=== PATIENT | female | born 1990 | race Caucasian/White ===

== ENCOUNTER 2016-05-01 02:01 | Emergency (ER) | payer OTHER ==
[2016-05-01 02:17] VITALS: BP 109/73; PULSE 89; RESP 18; TEMP 98
[2016-05-01] MEDS ORDERED: MORPHINE SULFATE 4 MG/ML SYRINGE IV STA (02:27)
[2016-05-01] MEDS ORDERED: ONDANSETRON 4 MG/2 ML VIAL IVP STA (02:27)
--- NOTE | 2016-05-01 03:15 | ED ---
Abdominal Pain HPI - General Source: patient, RN notes reviewed Mode of arrival: wheelchair Limitations: no limitations <Chaka Ybarra - Last Filed: 05/01/16 03:13> <Jacob Schwartz - Last Filed: 05/01/16 05:11> - General Chief Complaint: Abdominal Pain Stated Complaint: Female Time Seen by Provider: 05/01/16 02:24 - History of Present Illness Initial Comments: 26-year-old female presents emergency Department chief complaint severe left lower quadrant abdominal pain. Patient states she's been having on and off pain ever since she had her tubal ligation though she states the pain tonight is so severe she she cannot tolerate it. Patient states it's. Alone the left side. Patient states she had tubal ligation by Dr. Tamayo one year ago. She states that she did follow-up and was told this would dissipate though it's not. Patient denies any nausea vomiting diarrhea constipation. Denies fevers or chills. Denies any dysuria or any hematuria. Patient states that normally she can landed sided makes the pain go away though it's not helping. (Chaka Ybarra) - Related Data Home Medications Medication Instructions Recorded Confirmed Cyanocobalamin [Vitamin B-12] 500 mcg PO DAILY 05/01/16 02 Allergies Allergy/AdvReac Type Severity Reaction Status Date / Time Penicillins Allergy Severe Anaphylaxis Verified 05/01/16 02:17 bacitracin Allergy Swelling Verified 05/01/16 02:17 [From Neosporin ([id number])] bacitracin zinc Allergy Unknown Verified 05/01/16 02:17 [From Neosporin ([id number])] diphenhydramine HCl Allergy Swelling Verified 05/01/16 02:17 [From Benadryl] Iodine and Iodide Containing Allergy Rash/Hives Verified 05/01/16 02:17 Produc lidocaine Allergy Anaphylaxis Verified 05/01/16 02:17 neomycin sulfate Allergy Unknown Verified 05/01/16 02:17 [From Neosporin ([id number])] polymyxin B Allergy Unknown Verified 05/01/16 02:17 [From Neosporin ([id number])] Latex, Natural Rubber AdvReac Rash/Hives Verified 05/01/16 02:17 Review of Systems ROS Other: All systems not noted in ROS Statement are negative. <Chaka Ybarra Lizett - Last Filed: 05/01/16 03:13> ROS Other: All systems not noted in ROS Statement are negative. <Jacob Schwartz - Last Filed: 05/01/16 05:11> ROS Statement: Those systems with pertinent positive or pertinent negative responses have been documented in the HPI. Past Medical History Past Medical History: Asthma Additional Past Medical History / Comment(s): tachycardia History of Any Multi-Drug Resistant Organisms: ESBL, MRSA Date of last positivie culture/infection: 11/02/14 ESBL-E.coli; 12/29/09 MRSA MDRO Source:: Urine-ESBL; MRSA-Unknown Past Surgical History: Orthopedic Surgery, Tubal Ligation Additional Past Surgical History / Comment(s): d&c, shoulder and face surgery Additional Past Anesthesia/Blood Transfusion Reaction / Comment(s): Allergy to lidocain Past Psychological History: No Psychological Hx Reported Smoking Status: Current every day smoker Past Alcohol Use History: None Reported Past Drug Use History: None Reported - Past Family History Father Family Medical History: Hypertension Mother Family Medical History: Hypertension <Chaka Ybarra Lizett - Last Filed: 05/01/16 03:13> General Exam Limitations: no limitations General appearance: alert, in no apparent distress Head exam: Present: atraumatic, normocephalic, normal inspection Respiratory exam: Present: normal lung sounds bilaterally. Absent: respiratory distress, wheezes, rales, rhonchi, stridor Cardiovascular Exam: Present: regular rate, normal rhythm, normal heart sounds. Absent: systolic murmur, diastolic murmur, rubs, gallop, clicks GI/Abdominal exam: Present: soft, tenderness (Moderate to severe tenderness left lower quadrant), normal bowel sounds. Absent: distended, guarding, rebound , rigid Back exam: Absent: CVA tenderness (R), CVA tenderness (L) Neurological exam: Present: alert, oriented X3, CN II-XII intact Skin exam: Present: warm, dry, intact, normal color. Absent: rash <TateChaka Phoenix - Last Filed: 05/01/16 03:13> Medical Decision Making - Lab Data Result diagrams: 05/01/16 03:05 05/01/16 03:05 <Jacob Schwartz - Last Filed: 05/01/16 05:11> - Lab Data Lab Results 05/01/16 05/01/16 05/01/16 Range/Units 03:05 03:05 03:05 WBC 4.8 (3.8-10.6) k/uL RBC 4.30 (3.80-5.40) m/uL Hgb 12.0 (11.4-16.0) gm/dL Hct 36.6 (34.0-46.0) % MCV 85.1 (80.0-100.0) fL MCH 27.9 (25.0-35.0) pg MCHC 32.8 (31.0-37.0) g/dL RDW 13.8 (11.5-15.5) % Plt Count 146 L (150-450) k/uL Neutrophils % 59 % Lymphocytes % 30 % Monocytes % 7 % Eosinophils % 1 % Basophils % 1 % Neutrophils # 2.8 (1.3-7.7) k/uL Lymphocytes # 1.4 (1.0-4.8) k/uL Monocytes # 0.4 (0-1.0) k/uL Eosinophils # 0.1 (0-0.7) k/uL Basophils # 0.0 (0-0.2) k/uL Sodium 141 (137-145) mmol/L Potassium 3.8 (3.5-5.1) mmol/L Chloride 107 (98-107) mmol/L Carbon Dioxide 24 (22-30) mmol/L Anion Gap 10 mmol/L BUN 8 (7-17) mg/dL Creatinine 0.80 (0.52-1.04) mg/dL Est GFR (MDRD) Af Amer >60 (>60 ml/min/1.73 sqM) Est GFR (MDRD) Non-Af >60 (>60 ml/min/1.73 sqM) Glucose 97 (74-99) mg/dL Calcium 9.0 (8.4-10.2) mg/dL Total Bilirubin 0.3 (0.2-1.3) mg/dL AST 15 (14-36) U/L ALT 22 (9-52) U/L Alkaline Phosphatase 39 (38-126) U/L Total Protein 6.3 (6.3-8.2) g/dL Albumin 3.9 (3.5-5.0) g/dL Amylase 47 (30-110) U/L Lipase 143 (23-300) U/L Urine Color Light Yellow Urine Appearance Clear (Clear) Urine pH 7.0 (5.0-8.0) Ur Specific [place] 1.007 (1.001-1.035) Urine Protein Negative (Negative) Urine Glucose (UA) Negative (Negative) Urine Ketones Negative (Negative) Urine Blood Negative (Negative) Urine Nitrate Negative (Negative) Urine Bilirubin Negative (Negative) Urine Urobilinogen <2.0 (<2.0) mg/dL Ur Leukocyte Esterase Negative (Negative) Disposition <Chaka Ybarra - Last Filed: 05/01/16 03:13> <Jacob Schwartz - Last Filed: 05/01/16 05:11> Clinical Impression: Abdominal pain Disposition: HOME SELF-CARE Condition: Fair Instructions: Abdominal Pain (ED) Referrals: Horacio Peñaloza MD [Primary Care Provider] - 1-2 days Brad Jj DO [Doctor of Osteopathic Medicine] - 1-2 days
[2016-05-01 03:20] LABS: Basophils % (A) 1 %; CH 28.1; CHCM 33.1; Eosinophils # (A) 0.1 k/uL (0-0.7); Eosinophils % (A) 1 %; HCT 36.6 % (34.0-46.0); HDW 2.58; Luc # (Auto) 0.09; Luc % (Auto) 2; Lymphocytes # (A) 1.4 k/uL (1.0-4.8); Lymphocytes % (A) 30 %; MCH 27.9 pg (25.0-35.0); MCHC 32.8 g/dL (31.0-37.0); MCV 85.1 fL (80.0-100.0); Mean Platelet Volume 7.8; Monocytes # (A) 0.4 k/uL (0-1.0); Monocytes % (A) 7 %; Neutrophils # (A) 2.8 k/uL (1.3-7.7); Neutrophils % (A) 59 %; RDW 13.8 % (11.5-15.5); WBC 4.8 k/uL (3.8-10.6); WBC (Perox) 4.88
[2016-05-01 03:31] LABS: ALT 22 U/L (9-52); AST 15 U/L (14-36); Alkaline Phosphatase 39 U/L (38-126); Amylase 47 U/L (30-110); Anion Gap 10 mmol/L; Blood Urea Nitrogen 8 mg/dL (7-17); Carbon Dioxide 24 mmol/L (22-30); Chloride 107 mmol/L (98-107); Glucose 97 mg/dL (74-99); Non-African American GFR(MDRD) >60 (>60 ml/min/1.73 sqM); Potassium 3.8 mmol/L (3.5-5.1); Sodium 141 mmol/L (137-145); Total Bilirubin 0.3 mg/dL (0.2-1.3); Total Protein 6.3 g/dL (6.3-8.2)
[2016-05-01] MEDS ORDERED: KETOROLAC 30 MG/ML 1 ML VIAL IVP STA (04:11)
--- NOTE | 2016-05-01 04:38 | US ---
EXAM: US Pelvis Complete, Transabdominal. US Pelvis, Transvaginal. CLINICAL HISTORY: Reason: Pain TECHNIQUE: Real-time transabdominal and transvaginal pelvic ultrasound (complete) with image documentation. Transvaginal imaging was used for better evaluation of the endometrium and adnexa. COMPARISON: No relevant prior studies available. FINDINGS: Limitations: Some limitation reportedly due to the patient's pain, and also from peristalsing bowel loops within the pelvis. Endometrium: Uterus measures 8.9 x 5.1 x 4.7 cm and is uniform. The endometrial stripe is likewise uniform in within physiologic normal limits measuring 1.0 cm. Uterus/cervix: See above. Right ovary: As seen on transabdominal imaging the right ovary measures 3.4 x 2.6 x 2.4 cm, and contains a 1.3 cm hypoechoic focus suggesting a cyst or dominant follicle within. Preserved blood flow. Left ovary: As only visualized on transabdominal imaging the left ovary was measured at 3.0 x 1.9 x 1.6 cm. Preserved blood flow. Free fluid: Small to moderate amount of free fluid in the cul-de-sac. IMPRESSION: 1. Small 1.3 cm presumed cyst or dominant follicle within the right ovary, within physiologic normal limits. 2. Small to moderate amount of free fluid in the cul-de-sac is slightly greater than typically seen on a physiologic basis, albeit is nonspecific.
[2016-05-01 04:54] LABS: Appearance,Urine Clear (Clear); Bilirubin,Urine Negative (Negative); Glucose,Urine (UA) Negative (Negative); Ketones,Urine Negative (Negative); Leukocyte Esterase,Urine Negative (Negative); Nitrite,Urine Negative (Negative); Protein,Urine Negative (Negative); Specific Gravity,Urine 1.007 (1.001-1.035); UA Billing (MACRO vs. MICRO) CHEM; Urobilinogen,Urine <2.0 mg/dL (<2.0)
== END 2016-05-01 05:23 | disposition home or self-care (01) ==
LOC: EC 02:01
DX: R10.32 Left lower quadrant pain (principal); F17.200 Nicotine dependence, unspecified, uncomplicated; Z88.0 Allergy status to penicillin; Z88.8 Allergy status to other drugs, medicaments and biological substances; Z91.040 Latex allergy status; Z79.899 Other long term (current) drug therapy
CPT/HCPCS: 36415; 80053; 82150; 83690; 85025; 81003; 93975; 76856; 76830; 99284; 96374; 96375 ×2; J2270; J2405; J1885

== ENCOUNTER → 2016-10-18 | Outpatient (CLI) | payer OTHER | END | disposition home or self-care (01) | LOC: LABWHC1 10:52 | PROVIDERS: ATTEND Obstetrics & Gynecology | DX: N92.6 Irregular menstruation, unspecified (principal) | CPT/HCPCS: 36415; 84702 ==

== ENCOUNTER 2016-11-24 11:44 | Emergency (ER) | payer OTHER ==
[2016-11-24 11:58] VITALS: BP 107/70; PULSE 86; RESP 20; TEMP 98.1
[2016-11-24] MEDS ORDERED: ACETAMINOPHEN TAB 500 MG TAB PO STA (12:01)
--- NOTE | 2016-11-24 12:06 | ED ---
Lower Extremity Injury HPI - General Chief Complaint: Extremity Injury, Lower Stated Complaint: RT BIG TOE INJURY, POSS Fx Time Seen by Provider: 11/24/16 11:58 Source: patient Mode of arrival: ambulatory Limitations: no limitations - History of Present Illness Initial Comments: 26-year-old female patient presents to emergency department today for evaluation of right great toe injury. Patient states just prior to arrival she was moving around some furniture, states that she went to removal Viviana from a table when the table fell over and struck her in the toe. Patient states that the toe is very painful and the pain increases significantly with any movement. Patient states the toe is somewhat tingly however she is still able to feel when she touches the toe. She currently rates the pain as 7 out of 10 on the pain scale. She denies any previous injury to the foot or toe. She denies any foot pain or ankle pain. She denies falling down after the injury. She denies any other injuries or physical concerns. Patient denies any headache, neck pain , back pain, chest pain, shortness of breath, dizziness, weakness, abdominal pain, nausea, vomiting, or difficulties with bowel movements or urination. - Related Data Home Medications Medication Instructions Recorded Confirmed Cyanocobalamin [Vitamin B-12] 500 mcg PO DAILY 05/01/16 11/24/16 Allergies Allergy/AdvReac Type Severity Reaction Status Date / Time Penicillins Allergy Severe Anaphylaxis Verified 11/24/16 11:57 bacitracin Allergy Swelling Verified 11/24/16 11:57 [From Neosporin ([id number])] bacitracin zinc Allergy Unknown Verified 11/24/16 11:57 [From Neosporin ([id number]-bhr-khrjw)] diphenhydramine HCl Allergy Swelling Verified 11/24/16 11:57 [From Benadryl] Iodine and Iodide Containing Allergy Rash/Hives Verified 11/24/16 11:57 Produc lidocaine Allergy Anaphylaxis Verified 11/24/16 11:57 neomycin sulfate Allergy Unknown Verified 11/24/16 11:57 [From Neosporin ([id number]-zzo-[id number])] polymyxin B Allergy Unknown Verified 11/24/16 11:57 [From Neosporin ([id number]-paz-[id number])] Latex, Natural Rubber AdvReac Rash/Hives Verified 11/24/16 11:57 Review of Systems ROS Statement: Those systems with pertinent positive or pertinent negative responses have been documented in the HPI. ROS Other: All systems not noted in ROS Statement are negative. Past Medical History Past Medical History: Asthma Additional Past Medical History / Comment(s): tachycardia History of Any Multi-Drug Resistant Organisms: ESBL, MRSA Date of last positivie culture/infection: 11/02/14 ESBL-E.coli; 12/29/09 MRSA MDRO Source:: Urine-ESBL; MRSA-Unknown Past Surgical History: Orthopedic Surgery, Tubal Ligation Additional Past Surgical History / Comment(s): d&c, shoulder and face surgery Additional Past Anesthesia/Blood Transfusion Reaction / Comment(s): Allergy to lidocain Past Psychological History: No Psychological Hx Reported Smoking Status: Current every day smoker Past Alcohol Use History: None Reported Past Drug Use History: None Reported - Past Family History Father Family Medical History: Hypertension Mother Family Medical History: Hypertension General Exam Limitations: no limitations General appearance: alert, in no apparent distress, other (Patient is well- developed, well-nourished, and in no acute distress. Vital signs upon presentation her temperature 98.1, pulse 86, respirations 20, blood pressure 107 /70, pulse ox 100% on room air.) Respiratory exam: Present: normal lung sounds bilaterally. Absent: respiratory distress, wheezes, rales, rhonchi, stridor Cardiovascular Exam: Present: regular rate, normal rhythm, normal heart sounds. Absent: systolic murmur, diastolic murmur, rubs, gallop, clicks Extremities exam: Present: normal inspection, tenderness (Tenderness over the anterior right great toe. No tenderness over the MTP joint.), normal capillary refill, other (Skin is pink, warm, and dry. No evidence of swelling or ecchymosis. Cap refill is less than 3 seconds.). Absent: full ROM (Decreased range of motion to the right great toe due to severe pain with movement.), pedal edema, joint swelling, calf tenderness Neurological exam: Present: alert, oriented X3, CN II-XII intact Psychiatric exam: Present: normal affect, normal mood Skin exam: Present: warm, dry, intact, normal color. Absent: rash Course Vital Signs 11/24/16 11:56 Temperature 98.1 F Pulse Rate 86 Respiratory 20 Rate Blood Pressure 107/70 O2 Sat by Pulse 100 Oximetry Medical Decision Making - Medical Decision Making 26-year-old female patient presented for evaluation of right great toe injury. X-ray was negative for any acute fracture osseous abnormalities. Did discuss with patient the possibility of an occult fracture. She was instructed to have repeat x-ray performed in 7-10 days if she has continued pain symptoms. She is instructed as [id number] Tylenol or Motrin for pain control. She is instructed to rest, ice, and elevate the extremity today. She is instructed to return here immediately for any new, worsening, or concerning symptoms. Patient verbalizes understanding and agrees with this plan. - Radiology Data Radiology results: report reviewed, image reviewed 3 views of the right great toe were obtained and showed no fracture noted dislocation or other acute osseous lesion. Impression by Dr. Benitez shows normal right great toe. Disposition Clinical Impression: Toe contusion Disposition: HOME SELF-CARE Condition: Good Instructions: Contusion in Adults (ED) Additional Instructions: Rest foot today. Keep elevated apply ice 20 minutes at a time at least 4 times per day. Have repeat x-ray done in 7-10 days pain symptoms persist. Continue [id number]-[id number] Tylenol or Motrin for pain control. Return here immediately for any new, worsening, or concerning symptoms. Referrals: Horacio Peñaloza MD [Primary Care Provider] - 1-2 days Time of Disposition: 12:24
--- NOTE | 2016-11-24 12:23 | XR ---
EXAMINATION TYPE: XR toes RT , 3 VIEWS DATE OF EXAM ORDERED: 11/24/2016 HISTORY: Pain. COMPARISON: None. FINDINGS: No fracture, dislocation or other acute osseous lesion is seen. IMPRESSION: NORMAL RIGHT GREAT TOE.
== END 2016-11-24 12:45 | disposition home or self-care (01) ==
LOC: EC 11:44
DX: S90.111A Contusion of right great toe without damage to nail, initial encounter (principal); F17.200 Nicotine dependence, unspecified, uncomplicated; Z86.14 Personal history of Methicillin resistant Staphylococcus aureus infection; Z79.899 Other long term (current) drug therapy; Z88.0 Allergy status to penicillin; Z88.1 Allergy status to other antibiotic agents; Z91.048 Other nonmedicinal substance allergy status; Z91.040 Latex allergy status; Z91.041 Radiographic dye allergy status; W20.8XXA Other cause of strike by thrown, projected or falling object, initial encounter; Y93.89 Activity, other specified
CPT/HCPCS: 99283

== ENCOUNTER 2017-06-21 18:08 | Emergency (ER) | payer OTHER ==
[2017-06-21 18:27] VITALS: BP 107/67; PULSE 76; RESP 18; TEMP 99.2
[2017-06-21] MEDS ORDERED: DIPH,PERTUS(ACELL)TETVAC-LF 0.5 ML VIAL IM ONE (18:31)
--- NOTE | 2017-06-21 18:37 | ED ---
Lower Extremity Injury HPI - General Chief Complaint: Extremity Injury, Lower Stated Complaint: left foot pain Time Seen by Provider: 06/21/17 18:22 Source: patient Mode of arrival: wheelchair Limitations: no limitations - History of Present Illness Initial Comments: 27-year-old female presents with left great toe injury after a plastic pellet fell on it at work there issue. Patient states it was bleeding and they wrapped it and cleaned it with alcohol. Patient states her tetanus is up-to- date at 2008. Patient states it's very painful to ambulate. Patient states part of her nail did come off. No foot pain no second digit pain only pain in the first great toe. No fevers. No discharge besides bleeding. MD Complaint: foot injury -: hour(s) (1.5) Improves With: immobilization Worsens With: weight bearing Context: direct blow - Related Data Home Medications Medication Instructions Recorded Confirmed Cyanocobalamin [Vitamin B-12] 500 mcg PO DAILY 05/01/16 11/24/16 Previous Rx's Medication Instructions Recorded Azithromycin [Zithromax] 0 mg PO DIRECTED #6 tab 06/21/17 Allergies Allergy/AdvReac Type Severity Reaction Status Date / Time Penicillins Allergy Severe Anaphylaxis Verified 06/21/17 18:25 bacitracin Allergy Swelling Verified 06/21/17 18:25 [From Neosporin ([id number])] bacitracin zinc Allergy Unknown Verified 06/21/17 18:25 [From Neosporin (ymt-tuv-melkd)] diphenhydramine HCl Allergy Swelling Verified 06/21/17 18:25 [From Benadryl] Iodine and Iodide Containing Allergy Rash/Hives Verified 06/21/17 18:25 Produc lidocaine Allergy Anaphylaxis Verified 06/21/17 18:25 neomycin sulfate Allergy Unknown Verified 06/21/17 18:25 [From Neosporin ([id number])] polymyxin B Allergy Unknown Verified 06/21/17 18:25 [From Neosporin (hql-jzr-[id number])] Latex, Natural Rubber AdvReac Rash/Hives Verified 06/21/17 18:25 Review of Systems ROS Statement: Those systems with pertinent positive or pertinent negative responses have been documented in the HPI. ROS Other: All systems not noted in ROS Statement are negative. Constitutional: Denies: fever, chills Skin: Reports: other (Left great toe laceration and pain) Past Medical History Past Medical History: Asthma Additional Past Medical History / Comment(s): tachycardia History of Any Multi-Drug Resistant Organisms: ESBL, MRSA Date of last positivie culture/infection: 11/02/14 ESBL-E.coli; 12/29/09 MRSA MDRO Source:: Urine-ESBL; MRSA-Unknown Past Surgical History: Orthopedic Surgery, Tubal Ligation Additional Past Surgical History / Comment(s): d&c, shoulder and face surgery Additional Past Anesthesia/Blood Transfusion Reaction / Comment(s): Allergy to lidocain Past Psychological History: No Psychological Hx Reported Smoking Status: Current every day smoker Past Alcohol Use History: Occasional Past Drug Use History: None Reported - Past Family History Father Family Medical History: Hypertension Mother Family Medical History: Hypertension General Exam Limitations: no limitations General appearance: alert, in no apparent distress Neurological exam: Present: alert, oriented X3, CN II-XII intact Psychiatric exam: Present: normal affect, normal mood Skin exam: Present: warm, dry, normal color. Absent: intact (Laceration to the distal tip tip of the nail is removed. Positive bleeding), rash Course Vital Signs 06/21/17 18:25 Temperature 99.2 F Pulse Rate 76 Respiratory 18 Rate Blood Pressure 107/67 O2 Sat by Pulse 100 Oximetry Medical Decision Making - Medical Decision Making Patient was prepped and draped appropriately with normal saline Betadine solution. Wound was cleansed well bacitracin was applied patient states she is not ALLERGIC to bacitracin. Gauze was applied. Patient was given orthopedic shoe for support and was told to rahda tape her first and second toes. Patient' s x-ray report came back first metatarsal posttraumatic trauma versus osteonecrosis. Patient did have trauma to the area and is tender with x-ray is describing. Patient should follow up with orthopedic if not improving. Patient to only use topical antibiotics at this time if symptoms get worse such as redness or pain patient to then start oral antibiotic. Disposition Clinical Impression: Contusion, Laceration Disposition: HOME SELF-CARE Condition: Good Instructions: Foot Contusion (ED), Laceration (ED) Prescriptions: Azithromycin [Zithromax] 0 mg PO DIRECTED #6 tab Referrals: Horacio Peñaloza MD [Primary Care Provider] - 1-2 days Time of Disposition: 19:18
--- NOTE | 2017-06-21 19:00 | XR ---
First digit left foot HISTORY: Trauma and pain 3 views of the first digit of the left foot Bone mineralization is remarkable for sclerotic density with lucency at the level of the distal first metatarsal extending into the metatarsophalangeal joint, there is minimal marginal spurring. No disl ocation. IMPRESSION: Findings may represent osteonecrosis or posttraumatic change, possibly chronic involving the distal first metatarsal.
== END 2017-06-21 19:23 | disposition home or self-care (01) ==
LOC: EC 18:08
DX: S91.112A Laceration without foreign body of left great toe without damage to nail, initial encounter (principal); F17.200 Nicotine dependence, unspecified, uncomplicated; Z79.899 Other long term (current) drug therapy; Z88.0 Allergy status to penicillin; Z88.1 Allergy status to other antibiotic agents; Z88.8 Allergy status to other drugs, medicaments and biological substances; Z91.040 Latex allergy status; Z91.048 Other nonmedicinal substance allergy status; Z86.14 Personal history of Methicillin resistant Staphylococcus aureus infection; Z23 Encounter for immunization; W20.8XXA Other cause of strike by thrown, projected or falling object, initial encounter; Y92.69 Other specified industrial and construction area as the place of occurrence of the external cause
CPT/HCPCS: 90471; 90715; 99283

== ENCOUNTER 2017-07-23 13:50 | Emergency (ER) | payer OTHER ==
[2017-07-23 14:15] VITALS: BP 123/86; PULSE 65; RESP 20; TEMP 98.3
--- NOTE | 2017-07-23 15:10 | ED ---
General Adult HPI - General Chief complaint: Dental/Oral Stated complaint: Abcess in mouth Time Seen by Provider: 07/23/17 14:37 Source: patient, RN notes reviewed Mode of arrival: ambulatory Limitations: no limitations - History of Present Illness Initial comments: 27-year-old female presents to the emergency department for a chief complaint of tooth abscess x 2 days. Patient states she is seeing a dentist in 2 weeks. She states she is supposed to have all her teeth pulled. Patient states she has been taking Motrin and it has not been helping. Patient denies any fevers or chills at home. Patient states it is radiating down her lower jaw. Patient denies any pain or stiffness in the neck. Patient has no other complaints at this time including shortness of breath, chest pain, abdominal pain, nausea or vomiting, headache, or visual changes. - Related Data Home Medications Medication Instructions Recorded Confirmed Cyanocobalamin [Vitamin B-12] 500 mcg PO DAILY 05/01/16 11/24/16 Previous Rx's Medication Instructions Recorded Azithromycin [Zithromax] 0 mg PO DIRECTED #6 tab 06/21/17 Acetaminophen-Codeine 300-30mg 1 tab PO Q6H PRN #10 tablet 07/23/17 [Tylenol #3] Clindamycin [Cleocin] 450 mg PO Q8H 10 Days capsule 07/23/17 Ibuprofen [Motrin] 600 mg PO Q8HR PRN #20 tab 07/23/17 Allergies Allergy/AdvReac Type Severity Reaction Status Date / Time Penicillins Allergy Severe Anaphylaxis Verified 07/23/17 14:15 bacitracin Allergy Swelling Verified 07/23/17 14:15 [From Neosporin ([id number])] bacitracin zinc Allergy Unknown Verified 07/23/17 14:15 [From Neosporin (tok-mhm-oztjm)] diphenhydramine HCl Allergy Swelling Verified 07/23/17 14:15 [From Benadryl] Iodine and Iodide Containing Allergy Rash/Hives Verified 07/23/17 14:15 Produc lidocaine Allergy Anaphylaxis Verified 07/23/17 14:15 neomycin sulfate Allergy Unknown Verified 07/23/17 14:15 [From Neosporin (ssa-nrl-secpu)] polymyxin B Allergy Unknown Verified 07/23/17 14:15 [From Neosporin (jry-kfu-zniti)] Latex, Natural Rubber AdvReac Rash/Hives Verified 07/23/17 14:15 Review of Systems ROS Statement: Those systems with pertinent positive or pertinent negative responses have been documented in the HPI. ROS Other: All systems not noted in ROS Statement are negative. Past Medical History Past Medical History: Asthma Additional Past Medical History / Comment(s): tachycardia History of Any Multi-Drug Resistant Organisms: ESBL, MRSA Date of last positivie culture/infection: 11/02/14 ESBL-E.coli; 12/29/09 MRSA MDRO Source:: Urine-ESBL; MRSA-Unknown Past Surgical History: Orthopedic Surgery, Tubal Ligation Additional Past Surgical History / Comment(s): d&c, shoulder and face surgery Additional Past Anesthesia/Blood Transfusion Reaction / Comment(s): Allergy to lidocain Past Psychological History: No Psychological Hx Reported Smoking Status: Current every day smoker Past Alcohol Use History: Occasional Past Drug Use History: None Reported - Past Family History Father Family Medical History: Hypertension Mother Family Medical History: Hypertension General Exam Limitations: no limitations General appearance: alert, in no apparent distress Head exam: Present: atraumatic, normocephalic, normal inspection ENT exam: Present: mucous membranes moist, TM's normal bilaterally, normal external ear exam, other (Tooth 30 and 31 are fractured. No drainable abscess noted.) Course Vital Signs 07/23/17 14:12 Temperature 98.3 F Pulse Rate 65 Respiratory 20 Rate Blood Pressure 123/86 O2 Sat by Pulse 100 Oximetry Medical Decision Making - Medical Decision Making 27-year-old female presents to the emergency department for a chief complaint of right-sided lower tooth pain 2 days. Patient has an appointment with a dentist in 2 weeks. She is supposed to get all her teeth pulled. Patient states she has been taking Motrin is not helping. Patient has radiating pain in the right lower jaw. No fevers or chills at home. No neck stiffness or tenderness. On exam patient has a fractured tooth 30 and 31. Patient was offered pain medication in the emergency department but needs to drive home. Patient was given a prescription for Motrin. She was given a prescription for Tylenol 3 for breakthrough pain. She is ALLERGIC to penicillin so was given clindamycin. She is to return to the emergency Department if she has any worsening symptoms or fevers. Otherwise she is to follow-up with the dentist at her scheduled appointment. Disposition Clinical Impression: Abscessed tooth Disposition: HOME SELF-CARE Condition: Good Instructions: Dental Abscess (ED) Additional Instructions: Please take Motrin for pain. If pain is still severe take Tylenol 3. Please take antibiotic as directed. Please follow-up with dentist as soon as possible. Return to the emergency department if symptoms worsen or you begin to develop fevers. Prescriptions: Acetaminophen-Codeine 300-30mg [Tylenol #3] 1 tab PO Q6H PRN #10 tablet PRN Reason: Pain Clindamycin [Cleocin] 450 mg PO Q8H 10 Days capsule Ibuprofen [Motrin] 600 mg PO Q8HR PRN #20 tab PRN Reason: Pain Is patient prescribed a controlled substance at d/c from ED?: Yes Referrals: Horacio Peñaloza MD [Primary Care Provider] - 1-2 days Time of Disposition: 15:09
== END 2017-07-23 15:16 | disposition home or self-care (01) ==
LOC: EC 13:50
DX: K04.7 Periapical abscess without sinus (principal); K03.81 Cracked tooth; F17.200 Nicotine dependence, unspecified, uncomplicated; Z79.899 Other long term (current) drug therapy; Z88.0 Allergy status to penicillin; Z88.4 Allergy status to anesthetic agent; Z91.040 Latex allergy status; Z88.8 Allergy status to other drugs, medicaments and biological substances; Z86.14 Personal history of Methicillin resistant Staphylococcus aureus infection
CPT/HCPCS: 99282

== ENCOUNTER 2017-08-02 14:03 | Emergency (ER) | payer OTHER ==
[2017-08-02 14:07] VITALS: RESP 16
[2017-08-02] MEDS ORDERED: SODIUM CHLORIDE 0.9% 1,000 ML IV STA ×2 (14:16)
[2017-08-02] MEDS ORDERED: METOCLOPRAMIDE 5 MG/ML 2 ML VIAL IVP STA (14:17)
[2017-08-02] MEDS ORDERED: DEXAMETHASONE SOD PHOSPHATE 10 MG/ML 1 ML VIAL IV STA (14:18)
[2017-08-02] MEDS ORDERED: KETOROLAC 30 MG/ML 1 ML VIAL IVP STA (14:18)
[2017-08-02] MEDS ORDERED: LORazepam 2 MG/ML INJ IV STA (14:18)
--- NOTE | 2017-08-02 14:21 | ED ---
Syncope HPI - General Chief Complaint: Syncope Stated Complaint: Syncope Time Seen by Provider: 08/02/17 14:08 Source: patient Mode of arrival: ambulatory Limitations: no limitations - History of Present Illness Initial Comments: This 27-year-old white female presents with a syncopal episode. She apparently was cleaning the house and passed out. She apparently has been working significant amount of hours. She states that her air-conditioning was not on in her house and it was very hot. She further relates that she's been very stressed out recently. She recently found out that both of her children have autism as well as seizure disorders. She states that she feels very tired and fatigued. She complains of a headache and significant nausea. Headache is diffuse in nature. She has not been eating or drinking much recently. She denies any possibility of as she's had a tubal ligation. There is no chest pain shortness of breath. No leg pain or swelling. She does have a history of tachycardia and sees Dr. Ramirez for this. No other complaints or modifying factors. - Related Data Home Medications Medication Instructions Recorded Confirmed Cyanocobalamin [Vitamin B-12] 500 mcg PO DAILY 05/01/16 08/02/17 Previous Rx's Medication Instructions Recorded Azithromycin [Zithromax] 0 mg PO DIRECTED #6 tab 06/21/17 Acetaminophen-Codeine 300-30mg 1 tab PO Q6H PRN #10 tablet 07/23/17 [Tylenol #3] Clindamycin [Cleocin] 450 mg PO Q8H 10 Days capsule 07/23/17 Ibuprofen [Motrin] 600 mg PO Q8HR PRN #20 tab 07/23/17 Allergies Allergy/AdvReac Type Severity Reaction Status Date / Time Penicillins Allergy Severe Anaphylaxis Verified 08/02/17 14:07 bacitracin Allergy Swelling Verified 08/02/17 14:07 [From Neosporin ([id number])] bacitracin zinc Allergy Unknown Verified 08/02/17 14:07 [From Neosporin ([id number])] diphenhydramine HCl Allergy Swelling Verified 08/02/17 14:07 [From Benadryl] Iodine and Iodide Containing Allergy Rash/Hives Verified 08/02/17 14:07 Produc lidocaine Allergy Anaphylaxis Verified 08/02/17 14:07 neomycin sulfate Allergy Unknown Verified 08/02/17 14:07 [From Neosporin ([id number])] polymyxin B Allergy Unknown Verified 08/02/17 14:07 [From Neosporin ([id number])] Latex, Natural Rubber AdvReac Rash/Hives Verified 08/02/17 14:07 Review of Systems ROS Statement: Those systems with pertinent positive or pertinent negative responses have been documented in the HPI. ROS Other: All systems not noted in ROS Statement are negative. Past Medical History Past Medical History: Asthma Additional Past Medical History / Comment(s): tachycardia History of Any Multi-Drug Resistant Organisms: ESBL, MRSA Date of last positivie culture/infection: 11/02/14 ESBL-E.coli; 12/29/09 MRSA MDRO Source:: Urine-ESBL; MRSA-Unknown Past Surgical History: Orthopedic Surgery, Tubal Ligation Additional Past Surgical History / Comment(s): d&c, shoulder and face surgery Additional Past Anesthesia/Blood Transfusion Reaction / Comment(s): Allergy to lidocain Past Psychological History: No Psychological Hx Reported Smoking Status: Current every day smoker Past Alcohol Use History: Occasional Past Drug Use History: None Reported - Past Family History Father Family Medical History: Hypertension Mother Family Medical History: Hypertension General Exam - General Exam Comments Initial Comments: GENERAL: The patient is well nourished and well hydrated. VITAL SIGNS: Heart rate, blood pressure, respiratory rate reviewed as recorded in nurse's notes. EYES: Pupils are round and reactive. Extraocular movements are intact. No conjunctival / lid redness or swelling. ENT: No external evidence of injury, swelling, or ecchymosis. Airway is patent. Throat is clear. NECK: Nontender. No swelling or evidence of injury. No subcutaneous emphysema. Trachea is midline. No thyroid mass. HEART: Regular rate and rhythm. Good peripheral pulses. LUNGS/CHEST: Breath sounds clear and equal bilaterally. No rales, rhonchi, or wheezes. No ecchymosis, subcutaneous emphysema, or tenderness. ABDOMEN: Abdomen soft without tenderness. No palpable masses or organomegaly. No peritoneal signs. No abdominal wall swelling or ecchymosis. EXTREMITIES: No extremity tenderness. Normal muscle tone and function. No thoracolumbar tenderness. NEUROLOGIC: Sensation is grossly intact. Cranial nerve exam reveals face is symmetrical, tongue is midline, speech is clear. SKIN: No abrasions or ecchymosis is noted. No induration or masses noted. PSYCHIATRIC: Alert and oriented. Appears very anxious. Limitations: no limitations Course Vital Signs 08/02/17 08/02/17 14:04 14:37 Temperature 97.7 F Pulse Rate 117 H 81 Respiratory 16 16 Rate Blood Pressure 132/81 153/98 O2 Sat by Pulse 100 97 Oximetry Medical Decision Making - Medical Decision Making The patient was seen and examined. All diagnostics are reviewed. An IV is established and she is hydrated. She also receives some Decadron, Toradol, and Reglan intravenously. The EKG came back showing a normal sinus rhythm at a rate of 74. There is no acute ST-T wave changes identified. The RI intervals 156, QRS duration is 90, and the QTC intervals 426. Patient did receive some Ativan intravenously as well. The Accu-Chek came back at 106. The blood work was all essentially within normal limits. The computed tomography scan of the brain does not show any acute process. All of her symptoms have resolved on recheck. She is sleeping and feels much improved. Overall, the exact cause of her symptoms are not definitively determined. Is felt as though she likely does have another migraine headache. She also is very fatigued from increased work and decreased sleep. She has many life stressors and is felt as though she has a degree of anxiety as well nevertheless, it is felt as though she stable for discharge and close follow-up with her doctor. She is counseled that she may benefit from medications in regard to anxiety and may benefit from follow-up with the psychologist as well. - Lab Data Result diagrams: 08/02/17 14:23 08/02/17 14:23 Lab Results 08/02/17 08/02/17 08/02/17 Range/Units 14:16 14:17 14:23 WBC 5.2 (3.8-10.6) k/uL RBC 4.70 (3.80-5.40) m/uL Hgb 12.1 (11.4-16.0) gm/dL Hct 36.2 (34.0-46.0) % MCV 77.0 L (80.0-100.0) fL MCH 25.6 (25.0-35.0) pg MCHC 33.3 (31.0-37.0) g/dL RDW 14.6 (11.5-15.5) % Plt Count 240 (150-450) k/uL Neutrophils % 63 % Lymphocytes % 28 % Monocytes % 6 % Eosinophils % 1 % Basophils % 1 % Neutrophils # 3.3 (1.3-7.7) k/uL Lymphocytes # 1.5 (1.0-4.8) k/uL Monocytes # 0.3 (0-1.0) k/uL Eosinophils # 0.0 (0-0.7) k/uL Basophils # 0.0 (0-0.2) k/uL Sodium (137-145) mmol/L Potassium (3.5-5.1) mmol/L Chloride (98-107) mmol/L Carbon Dioxide (22-30) mmol/L Anion Gap mmol/L BUN (7-17) mg/dL Creatinine (0.52-1.04) mg/dL Est GFR (CKD-EPI)AfAm (>60 ml/min/1.73 sqM) Est GFR (CKD-EPI)NonAf (>60 ml/min/1.73 sqM) Glucose (74-99) mg/dL POC Glucose (mg/dL) 106 H (75-99) mg/dL POC Glu [employer] Kal Galindo Calcium (8.4-10.2) mg/dL Total Bilirubin (0.2-1.3) mg/dL AST (14-36) U/L ALT (9-52) U/L Alkaline Phosphatase (38-126) U/L Total Protein (6.3-8.2) g/dL Albumin (3.5-5.0) g/dL Urine Color Light Yellow Urine Appearance Clear (Clear) Urine pH 8.0 (5.0-8.0) Ur Specific [place] 1.003 (1.001-1.035) Urine Protein Negative (Negative) Urine Glucose (UA) Negative (Negative) Urine Ketones Negative (Negative) Urine Blood Negative (Negative) Urine Nitrite Negative (Negative) Urine Bilirubin Negative (Negative) Urine Urobilinogen <2.0 (<2.0) mg/dL Ur Leukocyte Esterase Negative (Negative) 08/02/17 Range/Units 14:23 WBC (3.8-10.6) k/uL RBC (3.80-5.40) m/uL Hgb (11.4-16.0) gm/dL Hct (34.0-46.0) % MCV (80.0-100.0) fL MCH (25.0-35.0) pg MCHC (31.0-37.0) g/dL RDW (11.5-15.5) % Plt Count (150-450) k/uL Neutrophils % % Lymphocytes % % Monocytes % % Eosinophils % % Basophils % % Neutrophils # (1.3-7.7) k/uL Lymphocytes # (1.0-4.8) k/uL Monocytes # (0-1.0) k/uL Eosinophils # (0-0.7) k/uL Basophils # (0-0.2) k/uL Sodium 140 (137-145) mmol/L Potassium 3.8 (3.5-5.1) mmol/L Chloride 103 (98-107) mmol/L Carbon Dioxide 22 (22-30) mmol/L Anion Gap 15 mmol/L BUN 9 (7-17) mg/dL Creatinine 0.77 (0.52-1.04) mg/dL Est GFR (CKD-EPI)AfAm >90 (>60 ml/min/1.73 sqM) Est GFR (CKD-EPI)NonAf >90 (>60 ml/min/1.73 sqM) Glucose 96 (74-99) mg/dL POC Glucose (mg/dL) (75-99) mg/dL POC Glu [employer] Appliance Installer ID Calcium 10.2 (8.4-10.2) mg/dL Total Bilirubin 0.4 (0.2-1.3) mg/dL AST 17 (14-36) U/L ALT 24 (9-52) U/L Alkaline Phosphatase 50 (38-126) U/L Total Protein 6.9 (6.3-8.2) g/dL Albumin 4.7 (3.5-5.0) g/dL Urine Color Urine Appearance (Clear) Urine pH (5.0-8.0) Ur Specific [place] (1.001-1.035) Urine Protein (Negative) Urine Glucose (UA) (Negative) Urine Ketones (Negative) Urine Blood (Negative) Urine Nitrite (Negative) Urine Bilirubin (Negative) Urine Urobilinogen (<2.0) mg/dL Ur Leukocyte Esterase (Negative) Disposition Clinical Impression: Fatigue, Headache, Syncope, Anxiety, Dehydration, Hypertension Disposition: HOME SELF-CARE Condition: Good Instructions: Syncope (ED), Migraine Headache (ED), Fatigue (ED), Anxiety (ED) , Hypertension (ED) Is patient prescribed a controlled substance at d/c from ED?: No Referrals: None,Stated [REFERRING] - 1-2 days Time of Disposition: 15:30
[2017-08-02 14:29] LABS: Glucose,Whole Blood 106 mg/dL (75-99)
[2017-08-02 14:38] LABS: Basophils % (A) 1 %; Eosinophils % (A) 1 %; HCT 36.2 % (34.0-46.0); HGB 12.1 gm/dL (11.4-16.0); Lymphocytes # (A) 1.5 k/uL (1.0-4.8); Lymphocytes % (A) 28 %; MCH 25.6 pg (25.0-35.0); MCHC 33.3 g/dL (31.0-37.0); Mean Platelet Volume 7.3; Monocytes # (A) 0.3 k/uL (0-1.0); Monocytes % (A) 6 %; Neutrophils # (A) 3.3 k/uL (1.3-7.7); Neutrophils % (A) 63 %; Platelet Count 240 k/uL (150-450); RDW 14.6 % (11.5-15.5); WBC 5.2 k/uL (3.8-10.6)
[2017-08-02 14:47] LABS: ALT 24 U/L (9-52); AST 17 U/L (14-36); Albumin 4.7 g/dL (3.5-5.0); Alkaline Phosphatase 50 U/L (38-126); Anion Gap 15 mmol/L; Blood Urea Nitrogen 9 mg/dL (7-17); Calcium 10.2 mg/dL (8.4-10.2); Carbon Dioxide 22 mmol/L (22-30); Chloride 103 mmol/L (98-107); Glucose 96 mg/dL (74-99); Potassium 3.8 mmol/L (3.5-5.1); Sodium 140 mmol/L (137-145); Total Bilirubin 0.4 mg/dL (0.2-1.3); Total Protein 6.9 g/dL (6.3-8.2)
[2017-08-02 14:52] LABS: Appearance,Urine Clear (Clear); Bilirubin,Urine Negative (Negative); Blood,Urine Negative (Negative); Color,Urine Light Yellow; Glucose,Urine (UA) Negative (Negative); Ketones,Urine Negative (Negative); Leukocyte Esterase,Urine Negative (Negative); Nitrite,Urine Negative (Negative); Protein,Urine Negative (Negative); Specific Gravity,Urine 1.003 (1.001-1.035); Urobilinogen,Urine <2.0 mg/dL (<2.0)
--- NOTE | 2017-08-02 15:15 | CT ---
EXAMINATION TYPE: CT brain wo con DATE OF EXAM: 08/02/2017 COMPARISON: 11/24/2009 HISTORY: Syncope CT DLP: 1121 mGycm. Automated Exposure Control for Dose Reduction was Utilized. TECHNIQUE: CT scan of the head is performed without contrast. FINDINGS: There is no acute intracranial hemorrhage, mass effect, or midline shift identified. No s uspicious extra actual fluid collection. The ventricles and sulci are within normal limits in size. The globes are intact and the visualized sinuses are clear. IMPRESSION: No acute intracranial hemorrhage, mass effect, or midline shift is seen.
[2017-08-02 16:13] VITALS: BP 121/88; PULSE 78; TEMP 97.8
== END 2017-08-02 16:12 | disposition home or self-care (01) ==
LOC: EC 14:03
DX: I10 Essential (primary) hypertension (principal); E86.0 Dehydration; F41.9 Anxiety disorder, unspecified; R55 Syncope and collapse; R51 Headache; F17.200 Nicotine dependence, unspecified, uncomplicated; Z86.14 Personal history of Methicillin resistant Staphylococcus aureus infection; Z88.0 Allergy status to penicillin; Z88.1 Allergy status to other antibiotic agents; Z88.8 Allergy status to other drugs, medicaments and biological substances; Z91.041 Radiographic dye allergy status; Z88.4 Allergy status to anesthetic agent; Z91.040 Latex allergy status
CPT/HCPCS: 36415; 93005; 80053; 85025; 81003; 70450; 99284; 96374; 96375 ×3; 96361 ×2; J2060; J1100; J2765; J1885

== ENCOUNTER 2017-08-22 09:51 | Emergency (ER) | payer OTHER ==
[2017-08-22 10:19] VITALS: BP 114/79; PULSE 75; RESP 16; TEMP 98.2
--- NOTE | 2017-08-22 10:47 | ED ---
General Adult HPI - General Chief complaint: Skin/Abscess/Foreign Body Stated complaint: ABSCESS Time Seen by Provider: 08/22/17 10:23 Source: patient, RN notes reviewed Mode of arrival: ambulatory Limitations: no limitations - History of Present Illness Initial comments: Patient is a pleasant 27-year-old female presenting to the emergency department with concerns for dental abscess. Patient does have history of similar symptoms previously. Patient has been on antibiotics twice recently. Patient was on azithromycin as well as clindamycin. Patient states no improvement. Patient last saw her dentist 2 weeks ago however dentist would not pull the tooth secondary to concerns for infection. No fevers. Patient has been taking Motrin and Tylenol 3 without much improvement. - Related Data Home Medications Medication Instructions Recorded Confirmed Cyanocobalamin [Vitamin B-12] 500 mcg PO DAILY 05/01/16 08/22/17 Calcium Carbonate [Calcium] 600 mg PO DAILY 08/22/17 08/22/17 Cholecalciferol [Vitamin D3] 1,000 unit PO DAILY 08/22/17 08/22/17 Ferrous Sulfate [Feosol] 325 mg PO DAILY 08/22/17 08/22/17 Ibuprofen [Motrin Ib] 800 mg PO Q6H PRN 08/22/17 08/22/17 Previous Rx's Medication Instructions Recorded Acetaminophen-Codeine 300-30mg 1 tab PO Q6H PRN #10 tablet 07/23/17 [Tylenol #3] metroNIDAZOLE [Flagyl] 500 mg PO QID #40 tab 08/22/17 Allergies Allergy/AdvReac Type Severity Reaction Status Date / Time Penicillins Allergy Severe Anaphylaxis Verified 08/22/17 10:37 bacitracin Allergy Swelling Verified 08/22/17 10:37 [From Neosporin ([id number])] bacitracin zinc Allergy Unknown Verified 08/22/17 10:37 [From Neosporin ([id number])] diphenhydramine HCl Allergy Swelling Verified 08/22/17 10:37 [From Benadryl] Iodine and Iodide Containing Allergy Rash/Hives Verified 08/22/17 10:37 Produc lidocaine Allergy Anaphylaxis Verified 08/22/17 10:37 neomycin sulfate Allergy Unknown Verified 08/22/17 10:37 [From Neosporin ([id number])] polymyxin B Allergy Unknown Verified 08/22/17 10:37 [From Neosporin ([id number])] Latex, Natural Rubber AdvReac Rash/Hives Verified 08/22/17 10:37 Review of Systems ROS Statement: Those systems with pertinent positive or pertinent negative responses have been documented in the HPI. ROS Other: All systems not noted in ROS Statement are negative. Constitutional: Denies: fever Eyes: Denies: eye pain ENT: Reports: dental pain Respiratory: Denies: dyspnea Cardiovascular: Denies: chest pain Endocrine: Denies: fatigue Gastrointestinal: Denies: abdominal pain Genitourinary: Denies: dysuria Musculoskeletal: Denies: back pain Skin: Denies: rash Neurological: Denies: weakness Past Medical History Past Medical History: Asthma Additional Past Medical History / Comment(s): tachycardia History of Any Multi-Drug Resistant Organisms: ESBL, MRSA Date of last positivie culture/infection: 11/02/14 ESBL-E.coli; 12/29/09 MRSA MDRO Source:: Urine-ESBL; MRSA-Unknown Past Surgical History: Orthopedic Surgery, Tubal Ligation Additional Past Surgical History / Comment(s): d&c, shoulder and face surgery Additional Past Anesthesia/Blood Transfusion Reaction / Comment(s): Allergy to lidocain Past Psychological History: No Psychological Hx Reported Smoking Status: Current every day smoker Past Alcohol Use History: Occasional Past Drug Use History: Marijuana - Past Family History Father Family Medical History: Hypertension Mother Family Medical History: Hypertension General Exam Limitations: no limitations General appearance: alert, in no apparent distress Head exam: Present: atraumatic Eye exam: Present: normal appearance ENT exam: Present: other (Mild swelling right mandible. There is mild tenderness. No erythema.) Expanded Mouth exam: Present: tongue normal. Absent: drooling, trismus Teeth exam: Present: dental caries (Multiple dental caries especially tooth #31 and 30.), dental tenderness #, gingival enlargement (Minimal right lower side without drainable abscess visualized) Throat exam: normal inspection Neck exam: Present: normal inspection Respiratory exam: Present: normal lung sounds bilaterally Cardiovascular Exam: Present: regular rate, normal rhythm GI/Abdominal exam: Present: soft. Absent: tenderness Extremities exam: Present: normal inspection Neurological exam: Present: alert Psychiatric exam: Present: normal affect, normal mood Skin exam: Present: normal color Course Vital Signs 08/22/17 10:16 Temperature 98.2 F Pulse Rate 75 Respiratory 16 Rate Blood Pressure 114/79 O2 Sat by Pulse 99 Oximetry Disposition Clinical Impression: Abscessed tooth Disposition: HOME SELF-CARE Condition: Stable Instructions: Toothache (ED), Dental Abscess (ED) Additional Instructions: Please follow-up with dentist in the next day or 2 for recheck. Return for fever, increased pain, increased swelling, worsening or changing symptoms or any other concerns. Do not drink alcohol with Flagyl antibiotic. Prescriptions: metroNIDAZOLE [Flagyl] 500 mg PO QID #40 tab Is patient prescribed a controlled substance at d/c from ED?: No Referrals: Horacio Peñaloza MD [Primary Care Provider] - 1-2 days Time of Disposition: 10:49
== END 2017-08-22 10:56 | disposition home or self-care (01) ==
LOC: EC 09:51
DX: K04.7 Periapical abscess without sinus (principal); F17.200 Nicotine dependence, unspecified, uncomplicated; Z86.14 Personal history of Methicillin resistant Staphylococcus aureus infection; Z88.0 Allergy status to penicillin; Z88.1 Allergy status to other antibiotic agents; Z88.8 Allergy status to other drugs, medicaments and biological substances; Z91.048 Other nonmedicinal substance allergy status; Z91.040 Latex allergy status
CPT/HCPCS: 99282

== ENCOUNTER → 2017-08-25 | Outpatient (CLI) | payer OTHER | END | disposition home or self-care (01) | LOC: RADECHMAIN 12:00 | PROVIDERS: ATTEND Family Medicine | DX: I49.3 Ventricular premature depolarization (principal); R00.0 Tachycardia, unspecified | CPT/HCPCS: 93270; 93271 ==

== ENCOUNTER → 2017-10-21 | Outpatient (CLI) | payer OTHER ==
--- NOTE | 2017-10-21 09:56 | US ---
EXAMINATION TYPE: US pelvic complete DATE OF EXAM: 10/21/2017 COMPARISON: 05/01/2016 CLINICAL HISTORY: Dysfunctional Uterine Bleeding N93.8. Left pelvic pain TECHNIQUE: . Transabdominal sonographic images of the pelvis were acquired. Date of LMP: About 2 weeks ago EXAM MEASUREMENTS: Uterus: 9.8 x 4.4 x 5.0 cm Endometrial Stripe: 0.7 cm Right Ovary: 2.9 x 1.9 x 2.7 cm Left Ovary: 3.2 x 1.4 x 1.8 cm 1. Uterus: Anteverted wnl 2. Endometrium: wnl 3. Right Ovary: wnl 4. Left Ovary: wnl 5. Bilateral Adnexa: wnl 6. Posterior cul-de-sac: Small amount of free fluid visualized IMPRESSION: 1 no distinct abnormality appreciated at this time.
== END | disposition home or self-care (01) ==
LOC: RADUSWWP 08:50
PROVIDERS: ATTEND Obstetrics & Gynecology
DX: N93.8 Other specified abnormal uterine and vaginal bleeding (principal)
CPT/HCPCS: 76856

== ENCOUNTER 2017-12-01 06:13 | Day surgery (SDC) | payer OTHER ==
[2017-11-25 10:21] VITALS: BMI 22.1
[~2017-12-01 06:13] MED LIST: LACTATED RINGERS 1,000 ML IV SCH; LIDOCAINE 1% 20 ML VIAL (10MG/ML) FOR IV START INTRADERMA PRN; ONDANSETRON 4 MG/2 ML VIAL IVP ONE; Pre Op ABX Message 1 EACH MISC MISCELLANE ONE
[2017-12-01] MEDS ORDERED: fentaNYL (PF) 50 MCG/ML 2 ML AMP ONE (07:58)
[2017-12-01] MEDS ORDERED: PROPOFOL 10 MG/ML 20 ML VIAL IV ONE (07:58)
[2017-12-01 08:40] VITALS: TEMP 97.5
[2017-12-01 08:47] VITALS: RESP 16
[2017-12-01] MEDS ORDERED: LACTATED RINGERS 1,000 ML IV ONE ×3 (09:06→10:43)
[2017-12-01] MEDS: HYDROmorphone 0.5 MG/0.5 ML SYRINGE IVP PRN ×2 (09:08→09:16)
--- NOTE | 2017-12-01 09:28 | P.OP ---
Date of Procedure: 12/01/17 Preoperative Diagnosis: Menorrhagia Postoperative Diagnosis: Same Procedure(s) Performed: D&C with hysteroscopy and NovaSure Anesthesia: MARY Surgeon: Brad Jj Estimated Blood Loss (ml): 5 Pathology: other (Uterine curettings) Condition: stable Disposition: same day Operative Findings: Pathology pending Description of Procedure: Patient was taken to the operating suite where a general anesthetic was found be adequate. She was prepped and draped in normal sterile fashion and placed in dorsal lithotomy position. Initially a speculum was inserted into the vagina and the anterior lip of the cervix was grasped with Allis clamp. Cervix was then dilated. 2 much blood was present was on her menses to do hysteroscopy. Therefore sharp curettings of endometrium were obtained. This tissue was collected and placed on Telfa and sent to pathology. Once accomplished NovaSure systems inserted with length of 4.5 and a width 3.5 was tested and activated once it passed its patency test. Once procedure was concluded from that standpoint NovaSure system was removed and camera was then inserted with excellent burn noted. All instruments were then removed. Sponge , lap and needle counts were all correct 2. Patient was then taken to the recovery room in stable and satisfactory condition. Plan - Discharge Summary New Discharge Prescriptions: New Ibuprofen [Motrin] 600 mg PO Q6HR PRN #30 tab PRN Reason: Pain No Action Cyanocobalamin [Vitamin B-12] 500 mcg PO DAILY Ferrous Sulfate [Feosol] 325 mg PO DAILY Cholecalciferol [Vitamin D3] 1,000 unit PO DAILY Calcium Carbonate [Calcium] 600 mg PO DAILY Discharge Medication List Cyanocobalamin [Vitamin B-12] 500 mcg PO DAILY 05/01/16 [History] Calcium Carbonate [Calcium] 600 mg PO DAILY 08/22/17 [History] Cholecalciferol [Vitamin D3] 1,000 unit PO DAILY 08/22/17 [History] Ferrous Sulfate [Feosol] 325 mg PO DAILY 08/22/17 [History] Ibuprofen [Motrin] 600 mg PO Q6HR PRN #30 tab 12/01/17 [Rx] Follow up Appointment(s)/Referral(s): Brad Jj DO [Doctor of Osteopathic Medicine] - 1 Week Activity/Diet/Wound Care/Special Instructions: Lifting, limit stairs and driving, and pelvic rest. If any high temperatures, heavy bleeding, or severe pain call my office Discharge Disposition: HOME SELF-CARE
--- NOTE | 2017-12-01 09:29 | P.HPOB ---
History of Present Illness H&P Date: 12/01/17 Chief Complaint: Menorrhagia Pupils 19-year-old female has completed her family planning underwent a tubal ligation. Her last several months she's had heavy vaginal bleeding and this has caused her significant distress and has limited her ability to function. She is therefore scheduled for a D&C with hysteroscopy and NovaSure. Risks/ benefits/alternatives were discussed with the patient in detail and all questions were answered for her prior to proceeding to the operating room. Past Medical History Past Medical History: Asthma Additional Past Medical History / Comment(s): tachycardia. DUB History of Any Multi-Drug Resistant Organisms: ESBL, MRSA Date of last positivie culture/infection: 11/02/14 ESBL-E.coli; 12/29/09 MRSA MDRO Source:: Urine-ESBL; MRSA-LT HIP Past Surgical History: Orthopedic Surgery, Tubal Ligation Additional Past Surgical History / Comment(s): d&c, shoulder and face surgery. CYST REMOVED FROM BACK OF HEAD Additional Past Anesthesia/Blood Transfusion Reaction / Comment(s): Allergy to lidocaine Smoking Status: Former smoker - Past Family History Father Family Medical History: Hypertension Mother Family Medical History: Hypertension Medications and Allergies Home Medications Medication Instructions Recorded Confirmed Type Cyanocobalamin [Vitamin B-12] 500 mcg PO DAILY 05/01/16 12/01/17 History Calcium Carbonate [Calcium] 600 mg PO DAILY 08/22/17 12/01/17 History Cholecalciferol [Vitamin D3] 1,000 unit PO DAILY 08/22/17 12/01/17 History Ferrous Sulfate [Feosol] 325 mg PO DAILY 08/22/17 12/01/17 History Ibuprofen [Motrin] 600 mg PO Q6HR PRN #30 tab 12/01/17 Rx Allergies Allergy/AdvReac Type Severity Reaction Status Date / Time Penicillins Allergy Severe Anaphylaxis Verified 12/01/17 06:47 bacitracin Allergy Swelling Verified 12/01/17 06:47 [From Neosporin ([id number])] bacitracin zinc Allergy Swelling Verified 12/01/17 06:47 [From Neosporin ([id number])] diphenhydramine HCl Allergy Swelling Verified 12/01/17 06:47 [From Benadryl] Iodine and Iodide Containing Allergy Rash/Hives Verified 12/01/17 06:47 Produc lidocaine Allergy Anaphylaxis Verified 12/01/17 06:47 neomycin sulfate Allergy Swelling Verified 12/01/17 06:47 [From Neosporin ([id number])] polymyxin B Allergy Swelling Verified 12/01/17 06:47 [From Neosporin ([id number])] Latex, Natural Rubber AdvReac Rash/Hives Verified 12/01/17 06:47 Exam Osteopathic Statement: *. No significant issues noted on an osteopathic structural exam other than those noted in the History and Physical/Consult. Vital Signs Temp Pulse Pulse Resp BP Pulse Ox 12/01/17 09:15 61 16 111/62 99 12/01/17 09:00 55 L 16 111/60 99 12/01/17 08:45 56 L 16 112/72 100 12/01/17 08:31 97.5 F L 67 18 112/75 100 12/01/17 06:49 979 F H 71 16 114/70 100 Intake and Output 11/30/17 12/01/17 12/01/17 22:59 06:59 14:59 Intake Total 450 550 Output Total 5 Balance 450 545 Intake: IV 450 550 Output: Estimated Blood Loss 5 - OBG Physical Exam Breast: both: normal (no masses) Abdomen: bowel sounds normal, no diffuse tenderness, no bruit present, no guarding noted, no hepatomegaly, no splenomegaly, no mass Vulva: both: normal Vagina: normal moisture, no discharge Cervix: no lesion, no discharge Uterus: normal size, normal contour Adnexa: both: normal Anus/Rectum: normal perianal skin, no rectal mass, no hemorrhoids, heme negative
[2017-12-01] MEDS ORDERED: IBUPROFEN 200 MG TAB PO ONE (10:09)
[2017-12-01 11:25] VITALS: BP 98/64; PULSE 61
== END 2017-12-01 11:34 | disposition home or self-care (01) ==
LOC: OR 06:13
PROVIDERS: ATTEND Obstetrics & Gynecology
DX: N84.0 Polyp of corpus uteri (principal); N92.0 Excessive and frequent menstruation with regular cycle; J45.909 Unspecified asthma, uncomplicated; R00.0 Tachycardia, unspecified; Z86.14 Personal history of Methicillin resistant Staphylococcus aureus infection; N39.0 Urinary tract infection, site not specified; Z87.891 Personal history of nicotine dependence; I10 Essential (primary) hypertension; Z88.4 Allergy status to anesthetic agent; Z88.1 Allergy status to other antibiotic agents; Z88.0 Allergy status to penicillin; Z88.8 Allergy status to other drugs, medicaments and biological substances; Z91.048 Other nonmedicinal substance allergy status
CPT/HCPCS: 81025; 88305; 58563; J2405; J3010; J2704; J1170

== ENCOUNTER 2018-03-02 01:02 | Emergency (ER) | payer OTHER ==
[2018-03-02] MEDS ORDERED: IBUPROFEN 600 MG TAB PO STA (02:14)
[2018-03-02] MEDS ORDERED: OFLOXACIN 0.3% OPHTH DROPS 5 ML BOTTLE LEFT EAR STA (02:46)
--- NOTE | 2018-03-02 02:46 | ED ---
General Adult HPI - General Chief complaint: ENT Stated complaint: Ear ache Time Seen by Provider: 03/02/18 02:05 Source: patient, RN notes reviewed Mode of arrival: ambulatory Limitations: no limitations - History of Present Illness Initial comments: 28-year-old female without any significant past medical history presents to the emergency department for a chief complaint of left ear pain 3 hours. Patient states this started at home. She states she had just taken a shower and went outside to smoke a cigarette when she first noticed the pain. Patient has been taking Motrin or Tylenol for pain. Patient has not had significant congestion recently. She denies any fevers or chills. Patient denies history of ear infections.Patient has no other complaints at this time including shortness of breath, chest pain, abdominal pain, nausea or vomiting, headache, or visual changes. - Related Data Home Medications Medication Instructions Recorded Confirmed Cyanocobalamin [Vitamin B-12] 500 mcg PO DAILY 05/01/16 12/01/17 Calcium Carbonate [Calcium] 600 mg PO DAILY 08/22/17 12/01/17 Cholecalciferol [Vitamin D3] 1,000 unit PO DAILY 08/22/17 12/01/17 Ferrous Sulfate [Feosol] 325 mg PO DAILY 08/22/17 12/01/17 Previous Rx's Medication Instructions Recorded Ibuprofen [Motrin] 600 mg PO Q6HR PRN #30 tab 12/01/17 Ofloxacin 0.3% Ophth Soln [Ocuflox 10 drops LEFT EAR DAILY 7 Days ml 03/02/18 Ophth Soln] Allergies Allergy/AdvReac Type Severity Reaction Status Date / Time Penicillins Allergy Severe Anaphylaxis Verified 03/02/18 01:05 bacitracin Allergy Swelling Verified 03/02/18 01:05 [From Neosporin ([id number])] bacitracin zinc Allergy Swelling Verified 03/02/18 01:05 [From Neosporin ([id number])] diphenhydramine HCl Allergy Swelling Verified 03/02/18 01:05 [From Benadryl] Iodine and Iodide Containing Allergy Rash/Hives Verified 03/02/18 01:05 Produc lidocaine Allergy Anaphylaxis Verified 03/02/18 01:05 neomycin sulfate Allergy Swelling Verified 03/02/18 01:05 [From Neosporin ([id number])] polymyxin B Allergy Swelling Verified 03/02/18 01:05 [From Neosporin ([id number])] Latex, Natural Rubber AdvReac Rash/Hives Verified 03/02/18 01:05 Review of Systems ROS Statement: Those systems with pertinent positive or pertinent negative responses have been documented in the HPI. ROS Other: All systems not noted in ROS Statement are negative. Past Medical History Past Medical History: Asthma Additional Past Medical History / Comment(s): tachycardia. DUB History of Any Multi-Drug Resistant Organisms: ESBL, MRSA Date of last positivie culture/infection: 11/02/14 ESBL-E.coli; 12/29/09 MRSA MDRO Source:: Urine-ESBL; MRSA-LT HIP Past Surgical History: Orthopedic Surgery, Tubal Ligation Additional Past Surgical History / Comment(s): d&c, shoulder and face surgery. CYST REMOVED FROM BACK OF HEAD Additional Past Anesthesia/Blood Transfusion Reaction / Comment(s): Allergy to lidocaine Past Psychological History: No Psychological Hx Reported Smoking Status: Former smoker - Past Family History Father Family Medical History: Hypertension Mother Family Medical History: Hypertension General Exam Limitations: no limitations General appearance: alert, in no apparent distress Head exam: Present: atraumatic, normocephalic, normal inspection Eye exam: Present: normal appearance, PERRL, EOMI. Absent: scleral icterus, conjunctival injection, periorbital swelling ENT exam: Present: normal exam, normal oropharynx, mucous membranes moist. Absent: TM's normal bilaterally (Tympanic membrane mildly erythematous, nonbulging in the left ear), normal external ear exam (Patient has significant tenderness to palpation of the tragus and traction of the pinna of the left ear. Mild edema noted in the left ear canal.) Neck exam: Present: normal inspection, full ROM. Absent: tenderness, meningismus, lymphadenopathy Respiratory exam: Present: normal lung sounds bilaterally. Absent: respiratory distress, wheezes, rales, rhonchi, stridor Cardiovascular Exam: Present: regular rate, normal rhythm, normal heart sounds. Absent: systolic murmur, diastolic murmur, rubs, gallop, clicks Neurological exam: Present: alert, oriented X3, CN II-XII intact Psychiatric exam: Present: normal affect, normal mood Course Vital Signs 03/02/18 03/02/18 01:03 03:03 Temperature 98 F 98.6 F Pulse Rate 82 68 Respiratory 16 17 Rate Blood Pressure 128/80 125/89 O2 Sat by Pulse 99 99 Oximetry Medical Decision Making - Medical Decision Making 28-year-old female presents to the emergency department for a chief complaint of left ear pain 3 hours. On exam patient does have significant tenderness to palpation of the tragus and traction of the pinna. She does appear to have mild edema noted of the left ear canal. Tympanic membranes mildly erythematous but nonbulging, nonopacified. Patient states this started after she got out of the shower. At this time patient's symptoms and exam are consistent with otitis externa. Patient will be treated with ofloxacin drops. Patient was given drops here while in the emergency department. She was also given a prescription. Discussed following up with primary care in 1-2 days and returning if she has any worsening symptoms. Disposition Clinical Impression: Ear pain, left, Otitis externa Disposition: HOME SELF-CARE Condition: Good Instructions: Otitis Externa (ED), Earache (ED) Additional Instructions: Please use drops as directed. Please take Motrin and Tylenol for pain. Follow- up with primary care in 1-2 days. Return to the emergency department if you have any worsening symptoms. Prescriptions: Ofloxacin 0.3% Ophth Soln [Ocuflox Ophth Soln] 10 drops LEFT EAR DAILY 7 Days ml Is patient prescribed a controlled substance at d/c from ED?: No Referrals: Horacio Peñaloza MD [Primary Care Provider] - 1-2 days Time of Disposition: 02:44
[2018-03-02 03:13] VITALS: BP 125/89; PULSE 68; RESP 17; TEMP 98.6
== END 2018-03-02 03:04 | disposition home or self-care (01) ==
LOC: EC 01:02
DX: H60.92 Unspecified otitis externa, left ear (principal); F17.210 Nicotine dependence, cigarettes, uncomplicated; Z88.0 Allergy status to penicillin; Z88.1 Allergy status to other antibiotic agents; Z88.8 Allergy status to other drugs, medicaments and biological substances; Z91.040 Latex allergy status; Z91.041 Radiographic dye allergy status; Z91.048 Other nonmedicinal substance allergy status; Z79.899 Other long term (current) drug therapy; Z86.14 Personal history of Methicillin resistant Staphylococcus aureus infection
CPT/HCPCS: 99282

== ENCOUNTER 2019-03-09 18:24 | Emergency (ER) | payer OTHER ==
[2019-03-09 18:30] VITALS: BP 125/75; TEMP 98.4
[2019-03-09] MEDS ORDERED: Acetaminophen-Codeine 300-30mg TAB PO STA (18:39)
[2019-03-09] MEDS ORDERED: ACET/COD 300 MG/30 MG STARTER PACK 6 TAB BTL PO STA (18:39)
--- NOTE | 2019-03-09 18:40 | ED ---
General Adult HPI - General Chief complaint: Dental/Oral Stated complaint: dry socket-teeth were pulled 1 week ago Time Seen by Provider: 03/09/19 18:33 Source: patient, RN notes reviewed, old records reviewed Mode of arrival: ambulatory Limitations: no limitations - History of Present Illness Initial comments: 29-year-old female patient past history significant for tubal ligation presents to ED chief complaint right lower dental pain. Patient reports that she had multiple teeth removed by an oral surgeon in approximately one week ago. P elizabeth reports that yesterday she began to experience some pain in her right lower jaw region. Isn't taking Tylenol and Motrin without relief. She reportedly declined stronger pain medication from oral surgeon because she does not like to take it. Declined any other complaints at this time. Systemic: Pt denies fatigue, fever/chills, rash. Pt denies weakness, night sweats, weight loss. Neuro: Pt denies headache, visual disturbances, syncope or pre-syncope. HEENT: Pt denies ocular discharge or irritation, otalgia, rhinorrhea, pharyngitis or notable lymphadenopathy. Cardiopulmonary: Pt denies chest pain, SOB, heart palpitations, dyspnea on exertion. Abdominal/GI: Pt denies abdominal pain, n/v/d. : Pt denies dysuria, burning w/ urination, frequency/urgency. Denies new onset urinary or bowel incontinence. MSK: Pt denies myalgia, loss of strength or function in extremities. Neuro: Pt denies new onset weakness, paresthesias. - Related Data Home Medications Medication Instructions Recorded Confirmed Cyanocobalamin [Vitamin B-12] 500 mcg PO DAILY 05/01/16 12/01/17 Calcium Carbonate [Calcium] 600 mg PO DAILY 08/22/17 12/01/17 Cholecalciferol [Vitamin D3] 1,000 unit PO DAILY 08/22/17 12/01/17 Ferrous Sulfate [Feosol] 325 mg PO DAILY 08/22/17 12/01/17 Previous Rx's Medication Instructions Recorded Ibuprofen [Motrin] 600 mg PO Q6HR PRN #30 tab 12/01/17 Ofloxacin 0.3% Ophth Soln [Ocuflox 10 drops LEFT EAR DAILY 7 Days ml 03/02/18 Ophth Soln] Allergies Allergy/AdvReac Type Severity Reaction Status Date / Time Penicillins Allergy Severe Anaphylaxis Verified 03/09/19 18:30 bacitracin Allergy Swelling Verified 03/09/19 18:30 [From Neosporin ([id number])] bacitracin zinc Allergy Swelling Verified 03/09/19 18:30 [From Neosporin ([id number])] diphenhydramine HCl Allergy Swelling Verified 03/09/19 18:30 [From Benadryl] Iodine and Iodide Containing Allergy Rash/Hives Verified 03/09/19 18:30 Produc lidocaine Allergy Anaphylaxis Verified 03/09/19 18:30 neomycin sulfate Allergy Swelling Verified 03/09/19 18:30 [From Neosporin ([id number])] polymyxin B Allergy Swelling Verified 03/09/19 18:30 [From Neosporin ([id number])] Latex, Natural Rubber AdvReac Rash/Hives Verified 03/09/19 18:30 Review of Systems ROS Statement: Those systems with pertinent positive or pertinent negative responses have been documented in the HPI. ROS Other: All systems not noted in ROS Statement are negative. Past Medical History Past Medical History: Asthma Additional Past Medical History / Comment(s): tachycardia History of Any Multi-Drug Resistant Organisms: ESBL, MRSA Date of last positivie culture/infection: 11/02/14 ESBL-E.coli; 12/29/09 MRSA MDRO Source:: Urine-ESBL; MRSA-LT HIP Past Surgical History: Orthopedic Surgery, Tubal Ligation Additional Past Surgical History / Comment(s): d&c, shoulder and face surgery. CYST REMOVED FROM BACK OF HEAD Additional Past Anesthesia/Blood Transfusion Reaction / Comment(s): Allergy to lidocaine Past Psychological History: No Psychological Hx Reported Smoking Status: Current every day smoker Past Alcohol Use History: Occasional Past Drug Use History: Marijuana - Past Family History Father Family Medical History: Hypertension Mother Family Medical History: Hypertension General Exam - General Exam Comments Initial Comments: Constitutional: NAD, AOX3, Pt has pleasant affect. HEENT: NC/AT, trachea midline, neck supple, no lymphadenopathy. Posterior pharynx non erythematous, without exudates. External ears appear normal, without discharge. Mucous membranes moist. Eyes PERRLA, EOM intact. There is no scleral icterus. No pallor noted. Poor dentition noted, multiple teeth extractions noted. They have complaint right lower jaw region not displaying any signs of infection. No drainage, no drainable abscess. Cardiopulmonary: RRR, no murmurs, rubs or gallops, no JVD noted. Lungs CTAB in anterior and posterior carl. No peripheral edema. Abdominal exam: Abdomen soft and non-distended. Abdomen non-tender to palpation in all 4 quadrants. Bowel sounds active in LLQ. No hepatosplenomegaly. No ecchymosis Neuro: CN II-XII grossly intact. No nuchal rigidity. No raccon eyes, no estrada sign, no hemotympanum. No cervical spinal tenderness. MSK: No posterior calf tenderness bilaterally, homans sign negative bilaterally. Posterior tibialis and radial pulse +2 bilaterally. Sensation intact in upper and lower extremities. Full active ROM in upper and lower extremities, 5/5 stregnth. Limitations: no limitations Course Vital Signs 03/09/19 03/09/19 18:27 18:43 Temperature 98.4 F Pulse Rate 115 H 101 H Respiratory 20 18 Rate Blood Pressure 125/75 O2 Sat by Pulse 97 96 Oximetry Medical Decision Making - Medical Decision Making 29-year-old feel patient presents to ED complaining of postop dental pain. Patient vital signs initially display tachycardia likely secondary to pain. Phy sical exam sleep or dentition, multiple teeth removed, no signs of infection were noted. Patient will be discharged with analgesia will follow-up with oral surgeon tomorrow, return to ER physician worsens. Case discussed with Dr. Olivera. Disposition Clinical Impression: Pain, dental Disposition: HOME SELF-CARE Condition: Stable Instructions (If sedation given, give patient instructions): Toothache (ED) Additional Instructions: Follow-up with oral surgeon who removed teeth. Use pain medication as needed. Do not drive after taking pain medication. Return to ER if condition worsens in any way. Is patient prescribed a controlled substance at d/c from ED?: No Referrals: Horacio Peñaloza MD [Primary Care Provider] - 1-2 days
[2019-03-09 18:44] VITALS: PULSE 101; RESP 18
== END 2019-03-09 18:47 | disposition home or self-care (01) ==
LOC: EC 18:24
DX: K08.89 Other specified disorders of teeth and supporting structures (principal); F17.200 Nicotine dependence, unspecified, uncomplicated; Z88.0 Allergy status to penicillin; Z88.1 Allergy status to other antibiotic agents; Z91.048 Other nonmedicinal substance allergy status; Z88.4 Allergy status to anesthetic agent; Z91.040 Latex allergy status; Z88.8 Allergy status to other drugs, medicaments and biological substances
CPT/HCPCS: 99283

== ENCOUNTER 2019-05-09 12:44 | Emergency (ER) | payer OTHER ==
--- NOTE | 2019-05-09 13:19 | ED ---
General Adult HPI - General Chief complaint: Arrhythmia/Palpitations Stated complaint: Tachycardia Time Seen by Provider: 05/09/19 13:01 Source: patient, RN notes reviewed Mode of arrival: ambulatory Limitations: no limitations - History of Present Illness Initial comments: Patient is a pleasant 29-year-old female presenting to the emergency department with complaints of palpitations. Onset of symptoms was yesterday. Symptoms occurred again today prior to arrival. Symptoms yesterday last around a half an hour however today last around 15 minutes. Patient has had similar episodes multiple times previously however usually only last about 5 minutes or so. Patient is currently symptom-free at this time. Patient did have some tingling of her hands earlier. Patient did check her heart rate and was 180-200. Patient has had previous Holter monitors however never diagnosed with arrhythmia. Patient states she does drink a lot of caffeine. Patient denies any diet pills or street drugs other than marijuana. Palpitations as described as racing heartbeat. - Related Data Home Medications Medication Instructions Recorded Confirmed Acetaminophen/Pamabrom [Midol 2 tab PO TID PRN 05/09/19 05/09/19 Caplet] Allergies Allergy/AdvReac Type Severity Reaction Status Date / Time Penicillins Allergy Severe Anaphylaxis Verified 05/09/19 14:50 bacitracin Allergy Swelling Verified 05/09/19 14:50 [From Neosporin ([id number])] bacitracin zinc Allergy Swelling Verified 05/09/19 14:50 [From Neosporin ([id number])] diphenhydramine HCl Allergy Swelling Verified 05/09/19 14:50 [From Benadryl] Iodine and Iodide Containing Allergy Rash/Hives Verified 05/09/19 14:50 Produc lidocaine Allergy Anaphylaxis Verified 05/09/19 14:50 neomycin sulfate Allergy Swelling Verified 05/09/19 14:50 [From Neosporin ([id number])] polymyxin B Allergy Swelling Verified 05/09/19 14:50 [From Neosporin ([id number])] Latex, Natural Rubber AdvReac Rash/Hives Verified 05/09/19 14:50 Review of Systems ROS Statement: Those systems with pertinent positive or pertinent negative responses have been documented in the HPI. ROS Other: All systems not noted in ROS Statement are negative. Constitutional: Denies: fever Eyes: Denies: eye pain ENT: Denies: ear pain Respiratory: Denies: cough Cardiovascular: Reports: as per HPI, palpitations Endocrine: Denies: fatigue Gastrointestinal: Denies: abdominal pain Genitourinary: Denies: dysuria Musculoskeletal: Denies: back pain Skin: Denies: rash Neurological: Denies: weakness Past Medical History Past Medical History: Asthma Additional Past Medical History / Comment(s): tachycardia History of Any Multi-Drug Resistant Organisms: ESBL, MRSA Date of last positivie culture/infection: 11/02/14 ESBL-E.coli; 12/29/09 MRSA MDRO Source:: Urine-ESBL; MRSA-LT HIP Past Surgical History: Orthopedic Surgery, Tubal Ligation Additional Past Surgical History / Comment(s): d&c, shoulder and face surgery. CYST REMOVED FROM BACK OF HEAD Additional Past Anesthesia/Blood Transfusion Reaction / Comment(s): Allergy to lidocaine Past Psychological History: No Psychological Hx Reported Smoking Status: Current every day smoker Past Alcohol Use History: Occasional Past Drug Use History: Marijuana - Past Family History Father Family Medical History: Hypertension Mother Family Medical History: Hypertension General Exam Limitations: no limitations General appearance: alert, in no apparent distress Head exam: Present: normocephalic Eye exam: Present: normal appearance Neck exam: Present: normal inspection Respiratory exam: Present: normal lung sounds bilaterally Cardiovascular Exam: Present: regular rate, normal rhythm, normal heart sounds Expanded Peripheral pulses: 2+: Radial (R), Radial (L), Dorsalis Pedis (R), Dorsalis Pedis (L) GI/Abdominal exam: Present: soft. Absent: tenderness Extremities exam: Present: normal inspection. Absent: pedal edema, calf tenderness Neurological exam: Present: alert Psychiatric exam: Present: normal affect, normal mood Skin exam: Present: normal color Course Vital Signs 05/09/19 05/09/19 05/09/19 12:55 13:14 13:30 Temperature 98.2 F Pulse Rate 93 85 87 Respiratory 18 17 Rate Blood Pressure 135/75 107/71 O2 Sat by Pulse 99 99 96 Oximetry 05/09/19 05/09/19 14:00 14:30 Temperature Pulse Rate 74 61 Respiratory 16 Rate Blood Pressure 112/66 105/69 O2 Sat by Pulse 96 96 Oximetry - Reevaluation(s) Reevaluation #1: 05/09/19 13:12 Patient advised to wean and discontinue EKG Findings - EKG Comments: EKG Findings:: Normal sinus rhythm 79. FL 152. QRS 92. UTC 360. QTC 412. Normal axis. Normal QRS. No acute ST change. Medical Decision Making - Medical Decision Making Patient reevaluated and resting comfortably in bed, symptom-free. Patient and family updated on results and need for follow-up. - Lab Data Result diagrams: 05/09/19 13:32 05/09/19 13:32 Lab Results 05/09/19 05/09/19 05/09/19 Range/Units 13:32 13:32 13:32 WBC 5.6 (3.8-10.6) k/uL RBC 4.32 (3.80-5.40) m/uL Hgb 11.7 (11.4-16.0) gm/dL Hct 36.5 (34.0-46.0) % MCV 84.4 (80.0-100.0) fL MCH 27.2 (25.0-35.0) pg MCHC 32.2 (31.0-37.0) g/dL RDW 13.6 (11.5-15.5) % Plt Count 210 (150-450) k/uL Neutrophils % 70 % Lymphocytes % 22 % Monocytes % 4 % Eosinophils % 1 % Basophils % 1 % Neutrophils # 4.0 (1.3-7.7) k/uL Lymphocytes # 1.2 (1.0-4.8) k/uL Monocytes # 0.2 (0-1.0) k/uL Eosinophils # 0.1 (0-0.7) k/uL Basophils # 0.0 (0-0.2) k/uL PT 10.5 (9.0-12.0) sec INR 1.0 (<1.2) APTT 25.8 (22.0-30.0) sec Sodium 140 (137-145) mmol/L Potassium 3.7 (3.5-5.1) mmol/L Chloride 106 (98-107) mmol/L Carbon Dioxide 24 (22-30) mmol/L Anion Gap 10 mmol/L BUN 9 (7-17) mg/dL Creatinine 0.74 (0.52-1.04) mg/dL Est GFR (CKD-EPI)AfAm >90 (>60 ml/min/1.73 sqM) Est GFR (CKD-EPI)NonAf >90 (>60 ml/min/1.73 sqM) Glucose 116 H (74-99) mg/dL Calcium 9.8 (8.4-10.2) mg/dL Magnesium 2.0 (1.6-2.3) mg/dL Total Bilirubin 0.4 (0.2-1.3) mg/dL AST 21 (14-36) U/L ALT 13 (4-34) U/L Alkaline Phosphatase 35 L (38-126) U/L Total Protein 7.2 (6.3-8.2) g/dL Albumin 4.5 (3.5-5.0) g/dL TSH 0.874 (0.465-4.680) mIU/L Free T4 1.87 (0.78-2.19) ng/dL Free T3 pg/mL 5.1 (2.8-5.3) pg/ml - Radiology Data Radiology results: image reviewed (Chest x-ray shows no acute process) Disposition Clinical Impression: Palpitations Disposition: HOME SELF-CARE Condition: Stable Instructions (If sedation given, give patient instructions): Heart Palpitations (ED) Additional Instructions: Please follow-up with cardiology and primary care physician in the beginning of the week. Return for increased heart rate, worsening symptoms, chest pain, or other concerns. Is patient prescribed a controlled substance at d/c from ED?: No Referrals: Horacio Peñaloza MD [Primary Care Provider] - 1-2 days Pacheco Milligan MD [STAFF PHYSICIAN] - 1-2 days Time of Disposition: 15:11
[2019-05-09 13:41] LABS: Basophils % (A) 1 %; Eosinophils # (A) 0.1 k/uL (0-0.7); Eosinophils % (A) 1 %; HCT 36.5 % (34.0-46.0); HGB 11.7 gm/dL (11.4-16.0); Lymphocytes # (A) 1.2 k/uL (1.0-4.8); Lymphocytes % (A) 22 %; MCH 27.2 pg (25.0-35.0); MCHC 32.2 g/dL (31.0-37.0); MCV 84.4 fL (80.0-100.0); Monocytes # (A) 0.2 k/uL (0-1.0); Monocytes % (A) 4 %; Neutrophils % (A) 70 %; Platelet Count 210 k/uL (150-450); RBC 4.32 m/uL (3.80-5.40); RDW 13.6 % (11.5-15.5); WBC 5.6 k/uL (3.8-10.6)
[2019-05-09 13:49] LABS: Partial Thromboplastin Time 25.8 sec (22.0-30.0); Prothrombin Time 10.5 sec (9.0-12.0)
[2019-05-09 13:53] LABS: ALT 13 U/L (4-34); AST 21 U/L (14-36); African American GFR (CKD) >90 (>60 ml/min/1.73 sqM); Albumin 4.5 g/dL (3.5-5.0); Alkaline Phosphatase 35 U/L (38-126); Anion Gap 10 mmol/L; Blood Urea Nitrogen 9 mg/dL (7-17); Calcium 9.8 mg/dL (8.4-10.2); Carbon Dioxide 24 mmol/L (22-30); Chloride 106 mmol/L (98-107); Glucose 116 mg/dL (74-99); Non-African American GFR(CKD) >90 (>60 ml/min/1.73 sqM); Potassium 3.7 mmol/L (3.5-5.1); Sodium 140 mmol/L (137-145); Total Bilirubin 0.4 mg/dL (0.2-1.3); Total Protein 7.2 g/dL (6.3-8.2)
--- NOTE | 2019-05-09 14:07 | XR ---
EXAMINATION TYPE: XR chest 2V DATE OF EXAM ORDERED: 05/09/2019 HISTORY: dysrhythmia. REFERENCE: None. FINDINGS: The lungs are clear. Pleural spaces are clear. Heart size is normal. IMPRESSION: NORMAL CHEST.
[2019-05-09 14:33] LABS: T4, Free (Free Thyroxine) 1.87 ng/dL (0.78-2.19)
[2019-05-09 14:43] VITALS: BP 105/69; RESP 16
[2019-05-09 15:48] VITALS: PULSE 78; TEMP 97.9
== END 2019-05-09 15:46 | disposition home or self-care (01) ==
LOC: EC 12:44
DX: R00.2 Palpitations (principal); R00.0 Tachycardia, unspecified; R20.2 Paresthesia of skin; F17.200 Nicotine dependence, unspecified, uncomplicated; Z88.0 Allergy status to penicillin; Z88.1 Allergy status to other antibiotic agents; Z88.4 Allergy status to anesthetic agent; Z88.8 Allergy status to other drugs, medicaments and biological substances; Z91.040 Latex allergy status; Z91.041 Radiographic dye allergy status; Z86.14 Personal history of Methicillin resistant Staphylococcus aureus infection; Z82.49 Family history of ischemic heart disease and other diseases of the circulatory system
CPT/HCPCS: 36415; 71046; 80053; 83735; 84439; 84443; 84481; 85025; 85610; 85730; 93005; 99285

== ENCOUNTER → 2019-10-22 | Outpatient (CLI) | payer OTHER | END | disposition home or self-care (01) | LOC: LABWHC1 12:40 | PROVIDERS: ATTEND Family Medicine | DX: Z20.828 Contact with and (suspected) exposure to other viral communicable diseases (principal) | CPT/HCPCS: U0003; C9803 ==

== ENCOUNTER → 2020-04-11 | Outpatient (CLI) | payer OTHER ==
--- NOTE | 2020-04-12 10:09 | USB ---
Reason for exam: clinical finding. History: Family history of breast cancer in maternal grandmother and breast cancer in paternal grandmother. Indicated problem(s): pain in the left breast. Physical Findings: Nurse did not find any significant physical abnormalities on exam. US Breast LT Technologist: Lottie Camara Left complete breast ultrasound includes all four quadrants, the retroareolar region and axilla. Finding demonstrates no cystic or solid lesion seen. These results were verbally communicated with the patient and result sheet given to the patient on 04/11/20. ASSESSMENT: Negative, BI-RAD 1 RECOMMENDATION: Routine screening mammogram of both breasts at age 39. Manage patient on a clinical basis.
== END | disposition home or self-care (01) ==
LOC: RADUSWWP 14:59
PROVIDERS: ATTEND Family Medicine
DX: N63.20 Unspecified lump in the left breast, unspecified quadrant (principal)

== ENCOUNTER 2020-05-31 10:48 | Emergency (ER) | payer OTHER ==
[2020-05-31] MEDS ORDERED: SODIUM CHLORIDE 0.9% 1,000 ML IV STA (11:07)
[2020-05-31 11:19] VITALS: RESP 18
--- NOTE | 2020-05-31 11:27 | ED ---
Chest Pain HPI - General Chief Complaint: Chest Pain Stated Complaint: Chest pain Time Seen by Provider: 05/31/20 10:57 Source: patient, EMS Mode of arrival: EMS Limitations: no limitations - History of Present Illness Initial Comments: Patient is a 30-year-old female, with history tachycardia, presenting to the emergency Department, via EMS, with complaints of chest tightness that started over the past 3 hours. Patient is also complaining of a racing heartbeat with heart rate in the 200s which only lasted a few minutes. Tightness is nonradiating. Patient has history of the same type of symptoms. She does follow with Dr. Gillette, we'll states he has not saw him in over 1 year. She has had full workups regarding the symptoms including heart monitoring many EKGs. She does admit to drinking a ton of caffeine daily including 3 extra large coffees, pop and energy drinks. She states she's been told in the past to stop drinking so much caffeine that this is contributing to her symptoms however she has not stopped yet. She states she does get these spells occasionally but usually does not last this long. She states she also feels some lightheadedness as well. She denies being secondary to tubal ligation. She denies any fever or chills, no shortness of breath, no cough. She states currently she is asymptomatic except for feeling lightheaded. She denies any abdominal pain, no nausea or vomiting. She has no further complaints. Upon arrival to the ER, her vital signs are stable. Per EMS, monitor during transport showed occasional PVCs otherwise normal sinus rhythm. - Related Data Home Medications Medication Instructions Recorded Confirmed Acetaminophen/Pamabrom [Midol 2 tab PO TID PRN 05/09/19 05/09/19 Caplet] Allergies Allergy/AdvReac Type Severity Reaction Status Date / Time Penicillins Allergy Severe Anaphylaxis Verified 05/31/20 11:19 bacitracin Allergy Swelling Verified 05/31/20 11:19 [From Neosporin ([id number])] bacitracin zinc Allergy Swelling Verified 05/31/20 11:19 [From Neosporin ([id number])] diphenhydramine HCl Allergy Swelling Verified 05/31/20 11:19 [From Benadryl] Iodine and Iodide Containing Allergy Rash/Hives Verified 05/31/20 11:19 Produc lidocaine Allergy Anaphylaxis Verified 05/31/20 11:19 neomycin sulfate Allergy Swelling Verified 05/31/20 11:19 [From Neosporin ([id number])] polymyxin B Allergy Swelling Verified 05/31/20 11:19 [From Neosporin ([id number])] Latex, Natural Rubber AdvReac Rash/Hives Verified 05/31/20 11:19 Review of Systems ROS Statement: Those systems with pertinent positive or pertinent negative responses have been documented in the HPI. ROS Other: All systems not noted in ROS Statement are negative. EKG Findings - EKG Comments: EKG Findings:: Normal sinus rhythm, normal ECG, similar to her previous on 05/09/2019. Ventricular rate 75, NE over 152, QT 368. Past Medical History Past Medical History: Asthma Additional Past Medical History / Comment(s): tachycardia History of Any Multi-Drug Resistant Organisms: ESBL, MRSA Date of last positivie culture/infection: 11/02/14 ESBL-E.coli; 12/29/09 MRSA MDRO Source:: Urine-ESBL; MRSA-LT HIP Past Surgical History: Orthopedic Surgery, Tubal Ligation Additional Past Surgical History / Comment(s): d&c, shoulder and face surgery. CYST REMOVED FROM BACK OF HEAD Additional Past Anesthesia/Blood Transfusion Reaction / Comment(s): Allergy to lidocaine Past Psychological History: No Psychological Hx Reported Smoking Status: Current every day smoker Past Alcohol Use History: Occasional Past Drug Use History: Marijuana - Past Family History Father Family Medical History: Hypertension Mother Family Medical History: Hypertension General Exam - General Exam Comments Initial Comments: GENERAL: Patient is well-developed and well-nourished. Patient is nontoxic and in no acute distress. HEAD: Atraumatic, normocephalic. EYES: Pupils equal round and reactive to light, extraocular movements intact, sclera anicteric, conjunctiva are normal. Eyelids were unremarkable. ENT: TMs normal, nares patent, oropharynx clear without exudates. Moist mucous membranes. NECK: Normal range of motion, supple without lymphadenopathy or JVD. LUNGS: Unlabored respirations. Breath sounds clear to auscultation bilaterally and equal. No wheezes rales or rhonchi. HEART: Regular rate and rhythm without murmurs, rubs or gallops. ABDOMEN: Soft, nontender, normoactive bowel sounds. No guarding, no rebound. No masses appreciated. : Deferred MUSCULOSKELETAL: Normal extremities with adequate strength and normal range of motion, no pitting or edema. No clubbing or cyanosis. NEUROLOGICAL: Patient is alert and oriented x 3. Motor and sensory are also intact. Cranial nerves II through XII grossly intact. Symmetrical smile. Normal speech, normal gait. PSYCH: Normal mood, normal affect. SKIN: Warm, Dry, normal turgor, no rashes or lesions noted. 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 Upon arrival to the ER, she is asymptomatic except for some lightheadedness. EKG is normal sinus rhythm rate of 75. Exam is unremarkable, vitals are stable. Labs are normal, troponin is normal, chest x-ray shows no acute process. Patient was given some fluids here in the ER. Her heart rate has remained normal in the 70s to 80s. She's been asymptomatic here. I discussed these findings with the patient. Feel like the patient's symptoms are atypical chest pain related to her tachycardia secondary from caffeine intake. She states her symptoms feel like they always do. She has had increase in stress as well. Patient wants to be discharged home, she does not want to stay. Patient states she did call Dr. Gillette's office and does have an appointment on Friday. Will increase her water intake. Strict return parameters were discussed with the patient she verbalized understanding. Patient is stable for discharge. Case discussed with Dr. Segal. Disposition Clinical Impression: Atypical chest pain, Light-headed feeling Disposition: HOME SELF-CARE Condition: Stable Instructions (If sedation given, give patient instructions): Tachycardia (ED) Additional Instructions: Please return to the Emergency Department if symptoms worsen or any other concerns. 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 Is patient prescribed a controlled substance at d/c from ED?: No Referrals: Horacio Peñaloza MD [Primary Care Provider] - 1-2 days Shaquille Gillette MD [STAFF PHYSICIAN] - 1-2 days
--- NOTE | 2020-05-31 11:28 | XR ---
EXAMINATION TYPE: XR chest 2V DATE OF EXAM: 05/31/2020 COMPARISON: 05/09/2019 INDICATION: Chest pain TECHNIQUE: Frontal and lateral views of the chest are obtained. FINDINGS: The heart size is normal. The pulmonary vasculature is normal. The lungs are clear. IMPRESSION: 1. No acute pulmonary process.
[2020-05-31 11:32] LABS: Basophils % (A) 0 %; Eosinophils # (A) 0.1 k/uL (0-0.7); Eosinophils % (A) 1 %; HCT 37.4 % (34.0-46.0); HGB 12.8 gm/dL (11.4-16.0); Lymphocytes # (A) 1.4 k/uL (1.0-4.8); Lymphocytes % (A) 28 %; MCH 28.8 pg (25.0-35.0); MCHC 34.1 g/dL (31.0-37.0); MCV 84.6 fL (80.0-100.0); Mean Platelet Volume 7.8; Monocytes # (A) 0.3 k/uL (0-1.0); Monocytes % (A) 6 %; Neutrophils # (A) 3.1 k/uL (1.3-7.7); Neutrophils % (A) 63 %; Platelet Count 173 k/uL (150-450); RBC 4.42 m/uL (3.80-5.40); RDW 13.1 % (11.5-15.5)
[2020-05-31 11:43] LABS: Partial Thromboplastin Time 24.8 sec (22.0-30.0); Prothrombin Time 10.6 sec (9.0-12.0)
[2020-05-31 11:44] LABS: ALT 11 U/L (4-34); AST 22 U/L (14-36); African American GFR (CKD) >90 (>60 ml/min/1.73 sqM); Albumin 4.3 g/dL (3.5-5.0); Alkaline Phosphatase 46 U/L (38-126); Anion Gap 10 mmol/L; Blood Urea Nitrogen 6 mg/dL (7-17); Calcium 9.7 mg/dL (8.4-10.2); Carbon Dioxide 22 mmol/L (22-30); Chloride 108 mmol/L (98-107); Glucose 126 mg/dL (74-99); Magnesium 1.9 mg/dL (1.6-2.3); Non-African American GFR(CKD) >90 (>60 ml/min/1.73 sqM); Potassium 3.7 mmol/L (3.5-5.1); Sodium 140 mmol/L (137-145); Total Bilirubin 0.4 mg/dL (0.2-1.3); Total Protein 6.8 g/dL (6.3-8.2)
[2020-05-31 13:10] VITALS: BP 106/79; PULSE 89; TEMP 98.3
== END 2020-05-31 13:09 | disposition home or self-care (01) ==
LOC: EC 10:48
DX: R07.89 Other chest pain (principal); R42 Dizziness and giddiness; F17.200 Nicotine dependence, unspecified, uncomplicated; Z88.0 Allergy status to penicillin; Z88.1 Allergy status to other antibiotic agents; Z91.048 Other nonmedicinal substance allergy status; Z88.4 Allergy status to anesthetic agent; Z88.8 Allergy status to other drugs, medicaments and biological substances; Z91.040 Latex allergy status
CPT/HCPCS: 36415; 71046; 80053; 83735; 84484; 85025; 85610; 85730; 93005; 96360; 99285

== ENCOUNTER 2021-04-01 12:32 | Emergency (ER) | payer OTHER ==
[2021-04-01 12:37] VITALS: TEMP 98
[2021-04-01] MEDS ORDERED: SODIUM CHLORIDE 0.9% 1,000 ML IV ONE (12:58)
[2021-04-01] MEDS ORDERED: ONDANSETRON 4 MG/2 ML VIAL IVP STA (12:58)
--- NOTE | 2021-04-01 12:58 | ED ---
General Adult HPI - General Chief complaint: Anxiety Stated complaint: Dizziness Time Seen by Provider: 04/01/21 12:38 Source: patient, EMS Mode of arrival: EMS - History of Present Illness Initial comments: Jody is a 31 -year-old female with a past medical history of tachycardia she presents the ER today via ambulance for evaluation of tachycardia lightheadedness and just feeling like she is in a brain fog. Patient states that she had a viral upper respiratory illness last week and last about 4 days she didn't eat much food but is trying to drink plenty of fluids. She is feeling better yesterday. Today she began to feel somewhat lightheaded. She denies any cough shortness of breath or chest pain. - Related Data Home Medications Medication Instructions Recorded Confirmed Albuterol Sulfate [Proair Hfa] 2 puff INHALATION RT-QID PRN 04/01/21 04/01/21 Previous Rx's Medication Instructions Recorded Ondansetron [Zofran ODT] 4 mg PO Q8HR #12 tab 04/01/21 Allergies Allergy/AdvReac Type Severity Reaction Status Date / Time Penicillins Allergy Severe Anaphylaxis Verified 04/01/21 14:26 bacitracin Allergy Swelling Verified 04/01/21 14:26 [From Neosporin ([id number])] bacitracin zinc Allergy Swelling Verified 04/01/21 14:26 [From Neosporin ([id number])] diphenhydramine HCl Allergy Swelling Verified 04/01/21 14:26 [From Benadryl] Iodine and Iodide Containing Allergy Rash/Hives Verified 04/01/21 14:26 Produc Latex, Natural Rubber Allergy Rash/Hives Verified 04/01/21 14:26 lidocaine Allergy Anaphylaxis Verified 04/01/21 14:26 neomycin sulfate Allergy Swelling Verified 04/01/21 14:26 [From Neosporin ([id number])] polymyxin B Allergy Swelling Verified 04/01/21 14:26 [From Neosporin (sai-[id number])] Review of Systems ROS Statement: Those systems with pertinent positive or pertinent negative responses have been documented in the HPI. ROS Other: All systems not noted in ROS Statement are negative. Past Medical History Past Medical History: Asthma Additional Past Medical History / Comment(s): tachycardia History of Any Multi-Drug Resistant Organisms: ESBL, MRSA Date of last positivie culture/infection: 11/02/14 ESBL-E.coli; 12/29/09 MRSA MDRO Source:: Urine-ESBL; MRSA-LT HIP Past Surgical History: Orthopedic Surgery, Tubal Ligation Additional Past Surgical History / Comment(s): d&c, shoulder and face surgery. CYST REMOVED FROM BACK OF HEAD Additional Past Anesthesia/Blood Transfusion Reaction / Comment(s): Allergy to lidocaine Past Psychological History: Anxiety Smoking Status: Current every day smoker Past Alcohol Use History: Occasional Past Drug Use History: Marijuana - Past Family History Father Family Medical History: Hypertension Mother Family Medical History: Hypertension General Exam - General Exam Comments Initial Comments: Physical Exam GENERAL: Patient is well-developed and well-nourished. Patient is nontoxic and well- hydrated and is in no distress. HENT: Normocephalic, Atraumatic. EYES: PERRL, EOMI PULMONARY: Unlabored respirations. No audible rales rhonchi or wheezing was noted. CARDIOVASCULAR: There is a regular rate and rhythm without any murmurs gallops or rubs. ABDOMEN: Soft and nontender with normal bowel sounds. SKIN: Skin is clear with no lesions or rashes and otherwise unremarkable. : Deferred NEUROLOGIC: Patient is alert and oriented x3. Moving all extremities spontaneously MUSCULOSKELETAL: Normal extremities with adequate strength and full range of motion. No lower extremity swelling or edema. No calf tenderness. PSYCHIATRIC: Normal psychiatric evaluation. Course Vital Signs 04/01/21 04/01/21 12:33 15:59 Temperature 98.0 F Pulse Rate 91 94 Respiratory 20 16 Rate Blood Pressure 125/77 111/68 O2 Sat by Pulse 97 98 Oximetry Medical Decision Making - Medical Decision Making Patient seen and evaluated history was obtained from patient Labs were obtained, patient has low lymphocytes low platelets, considering that she recently had exposure to COVID-19, tested negative before she developed any symptoms and has not been retested as the symptoms and lab findings are suspicious COVID-19. Patient comfortable with the clinical diagnosis of COVID- 19. She'll be discharged home with Zofran. - Lab Data Result diagrams: 04/01/21 13:20 04/01/21 13:20 Lab Results 04/01/21 04/01/21 Range/Units 13:20 13:20 WBC 5.0 (3.8-10.6) k/uL RBC 4.47 (3.80-5.40) m/uL Hgb 13.3 (11.4-16.0) gm/dL Hct 39.7 (34.0-46.0) % MCV 88.9 (80.0-100.0) fL MCH 29.8 (25.0-35.0) pg MCHC 33.6 (31.0-37.0) g/dL RDW 12.9 (11.5-15.5) % Plt Count 87 L (150-450) k/uL MPV 9.9 Neutrophils % 79 % Lymphocytes % 11 % Monocytes % 7 % Eosinophils % 1 % Basophils % 0 % Neutrophils # 4.0 (1.3-7.7) k/uL Lymphocytes # 0.5 L (1.0-4.8) k/uL Monocytes # 0.3 (0-1.0) k/uL Eosinophils # 0.1 (0-0.7) k/uL Basophils # 0.0 (0-0.2) k/uL Manual Slide Review Performed RBC Morphology Normal Sodium 140 (137-145) mmol/L Potassium 3.7 (3.5-5.1) mmol/L Chloride 107 (98-107) mmol/L Carbon Dioxide 27 (22-30) mmol/L Anion Gap 6 mmol/L BUN 6 L (7-17) mg/dL Creatinine 0.73 (0.52-1.04) mg/dL Est GFR (CKD-EPI)AfAm >90 (>60 ml/min/1.73 sqM) Est GFR (CKD-EPI)NonAf >90 (>60 ml/min/1.73 sqM) Glucose 113 H (74-99) mg/dL Calcium 9.5 (8.4-10.2) mg/dL Total Bilirubin 0.4 (0.2-1.3) mg/dL AST 23 (14-36) U/L ALT 24 (4-34) U/L Alkaline Phosphatase 35 L (38-126) U/L Total Protein 6.8 (6.3-8.2) g/dL Albumin 4.1 (3.5-5.0) g/dL TSH 1.110 (0.465-4.680) mIU/L Disposition Clinical Impression: Light-headed feeling, Nausea Disposition: HOME SELF-CARE Instructions (If sedation given, give patient instructions): Acute Nausea and Vomiting (ED) Is patient prescribed a controlled substance at d/c from ED?: No Referrals: Horacio Peñaloza MD [Primary Care Provider] - 1-2 days
[2021-04-01 13:34] LABS: Basophils % (A) 0 %; Eosinophils # (A) 0.1 k/uL (0-0.7); Eosinophils % (A) 1 %; HCT 39.7 % (34.0-46.0); HGB 13.3 gm/dL (11.4-16.0); Lymphocytes # (A) 0.5 k/uL (1.0-4.8); Lymphocytes % (A) 11 %; MCH 29.8 pg (25.0-35.0); MCHC 33.6 g/dL (31.0-37.0); MCV 88.9 fL (80.0-100.0); Mean Platelet Volume 9.9; Monocytes # (A) 0.3 k/uL (0-1.0); Monocytes % (A) 7 %; Neutrophils % (A) 79 %; RBC 4.47 m/uL (3.80-5.40); RDW 12.9 % (11.5-15.5)
[2021-04-01 13:47] LABS: ALT 24 U/L (4-34); AST 23 U/L (14-36); African American GFR (CKD) >90 (>60 ml/min/1.73 sqM); Albumin 4.1 g/dL (3.5-5.0); Alkaline Phosphatase 35 U/L (38-126); Anion Gap 6 mmol/L; Blood Urea Nitrogen 6 mg/dL (7-17); Calcium 9.5 mg/dL (8.4-10.2); Carbon Dioxide 27 mmol/L (22-30); Chloride 107 mmol/L (98-107); Glucose 113 mg/dL (74-99); Non-African American GFR(CKD) >90 (>60 ml/min/1.73 sqM); Potassium 3.7 mmol/L (3.5-5.1); Sodium 140 mmol/L (137-145); Total Bilirubin 0.4 mg/dL (0.2-1.3); Total Protein 6.8 g/dL (6.3-8.2)
[2021-04-01 14:44] LABS: Platelet Count 87 k/uL (150-450)
[2021-04-01 16:00] VITALS: BP 111/68; PULSE 94; RESP 16
[2021-04-01] MEDS ORDERED: ONDANSETRON 4 MG ODT STARTER PACK 2 TAB BTL PO STA (16:23)
== END 2021-04-01 16:33 | disposition home or self-care (01) ==
LOC: EC 12:32
DX: R42 Dizziness and giddiness (principal); R11.0 Nausea; J45.909 Unspecified asthma, uncomplicated; F41.9 Anxiety disorder, unspecified; F17.200 Nicotine dependence, unspecified, uncomplicated; F12.90 Cannabis use, unspecified, uncomplicated; Z88.0 Allergy status to penicillin; Z88.1 Allergy status to other antibiotic agents; Z91.040 Latex allergy status; Z98.51 Tubal ligation status
CPT/HCPCS: 99285; 96374; 36415; 93005; 80053; 84443; 85025; J2405; S0119

== ENCOUNTER 2021-08-27 20:50 | Emergency (ER) | payer OTHER ==
[2021-08-27 21:25] VITALS: BP 124/71; PULSE 78; RESP 18; TEMP 97.7
--- NOTE | 2021-08-27 21:54 | XR ---
EXAMINATION TYPE: XR forearm LT DATE OF EXAM: 08/27/2021 COMPARISON: NONE HISTORY: Pain TECHNIQUE: 2 views FINDINGS: Radius and ulna appear intact. I see no fracture nor dislocation. Joint spaces are normal. IMPRESSION: Negative left forearm exam.
--- NOTE | 2021-08-27 22:53 | ED ---
Upper Extremity HPI - General Chief Complaint: Extremity Injury, Upper Stated Complaint: Left Forearm Injury Time Seen by Provider: 08/27/21 22:37 Source: patient, RN notes reviewed Mode of arrival: ambulatory Limitations: no limitations - History of Present Illness Initial Comments: This is a 31-year-old female who presents to the emergency department for left forearm pain. She states that she tripped over her dog and fell into her coffee table earlier today. She has not taken anything for the pain, states that she prefers to avoid medication. She has also not been icing the arm or been treating it in any other way. She is able to move her arm states that the pain is largely localized to the center of her forearm. Denies any fevers, chills, sore throat, cough, dyspnea, chest pain, palpitations, abdominal pain, nausea, vomiting, diarrhea, back pain, or headaches. MD Complaint: Injury to:: left, forearm Other Injuries: none Place: home Context: fall Associated Symptoms: denies other symptoms - Related Data Home Medications Medication Instructions Recorded Confirmed Albuterol Sulfate [Proair Hfa] 2 puff INHALATION RT-QID PRN 04/01/21 04/01/21 Previous Rx's Medication Instructions Recorded Ondansetron [Zofran ODT] 4 mg PO Q8HR #12 tab 04/01/21 Allergies Allergy/AdvReac Type Severity Reaction Status Date / Time Penicillins Allergy Severe Anaphylaxis Verified 04/01/21 14:26 bacitracin Allergy Swelling Verified 04/01/21 14:26 [From Neosporin ([id number])] bacitracin zinc Allergy Swelling Verified 04/01/21 14:26 [From Neosporin ([id number])] diphenhydramine HCl Allergy Swelling Verified 04/01/21 14:26 [From Benadryl] Iodine and Iodide Containing Allergy Rash/Hives Verified 04/01/21 14:26 Produc Latex, Natural Rubber Allergy Rash/Hives Verified 04/01/21 14:26 lidocaine Allergy Anaphylaxis Verified 04/01/21 14:26 neomycin sulfate Allergy Swelling Verified 04/01/21 14:26 [From Neosporin ([id number])] polymyxin B Allergy Swelling Verified 04/01/21 14:26 [From Neosporin ([id number])] Review of Systems ROS Statement: Those systems with pertinent positive or pertinent negative responses have been documented in the HPI. ROS Other: All systems not noted in ROS Statement are negative. Past Medical History Past Medical History: Asthma Additional Past Medical History / Comment(s): tachycardia History of Any Multi-Drug Resistant Organisms: ESBL, MRSA Date of last positivie culture/infection: 11/02/14 ESBL-E.coli; 12/29/09 MRSA MDRO Source:: Urine-ESBL; MRSA-LT HIP Past Surgical History: Orthopedic Surgery, Tubal Ligation Additional Past Surgical History / Comment(s): d&c, shoulder and face surgery. CYST REMOVED FROM BACK OF HEAD Additional Past Anesthesia/Blood Transfusion Reaction / Comment(s): Allergy to lidocaine Past Psychological History: Anxiety Smoking Status: Current every day smoker Past Alcohol Use History: Occasional Past Drug Use History: Marijuana - Past Family History Father Family Medical History: Hypertension Mother Family Medical History: Hypertension General Exam Limitations: no limitations General appearance: alert, in no apparent distress Head exam: Present: atraumatic, normocephalic, normal inspection Respiratory exam: Present: normal lung sounds bilaterally. Absent: respiratory distress, wheezes, rales, rhonchi, stridor Cardiovascular Exam: Present: regular rate, normal rhythm, normal heart sounds. Absent: systolic murmur, diastolic murmur, rubs, gallop, clicks Extremities exam: Present: other (Localized area of swelling and ecchymosis to the mid left forearm with tenderness to palpation. Full range of motion. 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 Radial and ulnar pulses are intact. Capillary refill less than 1 second.) Neurological exam: Present: alert, oriented X3, CN II-XII intact Psychiatric exam: Present: normal affect, normal mood Skin exam: Present: warm, dry, intact, normal color. Absent: rash Course Vital Signs 08/27/21 21:23 Temperature 97.7 F Pulse Rate 78 Respiratory 18 Rate Blood Pressure 124/71 O2 Sat by Pulse 98 Oximetry Medical Decision Making - Medical Decision Making This is a 31-year-old female who presents to the emergency department for left forearm pain. X-ray revealed no acute abnormalities. Advised to ice the arm for the first 2 days followed by heat there afterwards. Also advised alternating with ibuprofen and Tylenol as needed for pain, however if she wishes to avoid taking these as she does not like taking medications, that is fine too. Return precautions reviewed in depth, the patient is instructed to return to the emergency department with any new, worsening, or concerning symptoms. Patient verbalized understanding. This case was discussed in detail with the attending ED physician. Presentation, findings, and treatment plan discussed in detail as well. - Radiology Data Radiology results: report reviewed, image reviewed Disposition Clinical Impression: Injury of left forearm Disposition: HOME SELF-CARE Instructions (If sedation given, give patient instructions): Arm Pain (ED) Additional Instructions: Return to the emergency department with any new, worsening, or concerning symptoms. Ice the arm for the first 2 days followed by heat there afterwards. Alternate with ibuprofen and Tylenol as needed for pain. Is patient prescribed a controlled substance at d/c from ED?: No Referrals: Horacio Peñaloza MD [Primary Care Provider] - 1-2 days
== END 2021-08-27 23:12 | disposition home or self-care (01) ==
LOC: EC 20:50
DX: S50.12XA Contusion of left forearm, initial encounter (principal); J45.909 Unspecified asthma, uncomplicated; F41.9 Anxiety disorder, unspecified; F17.200 Nicotine dependence, unspecified, uncomplicated; F12.90 Cannabis use, unspecified, uncomplicated; Z79.51 Long term (current) use of inhaled steroids; Z79.899 Other long term (current) drug therapy; W01.190A Fall on same level from slipping, tripping and stumbling with subsequent striking against furniture, initial encounter; Y92.009 Unspecified place in unspecified non-institutional (private) residence as the place of occurrence of the external cause
CPT/HCPCS: 99284

== ENCOUNTER 2022-09-26 09:24 | Observation (INO) | payer OTHER ==
--- NOTE | 2022-09-26 10:35 | ED ---
General Adult HPI - General Chief complaint: Chest Pain Stated complaint: Chest Pain, History of Heart Attack Time Seen by Provider: 09/26/22 09:40 Source: patient, RN notes reviewed, old records reviewed Mode of arrival: wheelchair Limitations: no limitations - History of Present Illness Initial comments: This is a 32-year-old female presents emergency department stating that yesterday she has some chest pain was intermittent lasting about an hour time. Patient states she had no associated symptoms with it. Patient states she woke up again today and had chest pain again so she decided come to the emergency department after calling her primary medical care doctor he recommended it. Patient states here ago she was seen at another hospital and was told her troponins were elevated and she was to follow-up. Patient states she never followed up because she has 2 children a full-time job and never was able to. Patient denies any recent fever chills. Patient denies shortness breath or difficulty breathing. Patient denies any diaphoretic episodes. Patient denies any numbness weakness. Patient denies headache patient denies lightheadedness or dizziness. - Related Data Home Medications Medication Instructions Recorded Confirmed Multivit with Calcium,Iron,Min 1 tab PO DAILY 09/26/22 09/26/22 [Women's Multivitamin] Allergies Allergy/AdvReac Type Severity Reaction Status Date / Time Penicillins Allergy Severe Anaphylaxis Verified 09/26/22 10:05 bacitracin Allergy Swelling Verified 09/26/22 10:05 [From Neosporin at contact ([id number])] bacitracin zinc Allergy Swelling Verified 09/26/22 10:05 [From Neosporin at contact ([id number])] diphenhydramine HCl Allergy Swelling Verified 09/26/22 10:05 [From Benadryl] Iodine and Iodide Containing Allergy Rash/Hives Verified 09/26/22 10:05 Produc Latex, Natural Rubber Allergy Rash/Hives Verified 09/26/22 10:05 lidocaine Allergy Anaphylaxis Verified 09/26/22 10:05 neomycin sulfate Allergy Swelling Verified 09/26/22 10:05 [From Neosporin at contact ([id number])] polymyxin B Allergy Swelling Verified 09/26/22 10:05 [From Neosporin at contact ([id number])] Review of Systems ROS Statement: Those systems with pertinent positive or pertinent negative responses have been documented in the HPI. ROS Other: All systems not noted in ROS Statement are negative. Past Medical History Past Medical History: Asthma Additional Past Medical History / Comment(s): tachycardia History of Any Multi-Drug Resistant Organisms: ESBL, MRSA Date of last positivie culture/infection: 11/02/14 ESBL-E.coli; 12/29/09 MRSA MDRO Source:: Urine-ESBL; MRSA-LT HIP Past Surgical History: Orthopedic Surgery, Tubal Ligation Additional Past Surgical History / Comment(s): d&c, shoulder and face surgery. CYST REMOVED FROM BACK OF HEAD Additional Past Anesthesia/Blood Transfusion Reaction / Comment(s): Allergy to lidocaine Past Psychological History: Anxiety Smoking Status: Current every day smoker Past Alcohol Use History: Occasional Past Drug Use History: Marijuana - Past Family History Father Family Medical History: Hypertension Mother Family Medical History: Hypertension General Exam - General Exam Comments Initial Comments: GENERAL: Patient is well-developed and well-nourished. Patient is nontoxic and well- hydrated and is in mild distress. ENT: Neck is soft and supple. No significant lymphadenopathy is noted. Oropharynx is clear. Moist mucous membranes. Neck has full range of motion without eliciting any pain. EYES: The sclera were anicteric and conjunctiva were pink and moist. Extraocular movements were intact and pupils were equal round and reactive to light. Eyelids were unremarkable. PULMONARY: Unlabored respirations. Good breath sounds bilaterally. No audible rales rho nchi or wheezing was noted. CARDIOVASCULAR: There is a regular rate and rhythm without any murmurs gallops or rubs. ABDOMEN: Soft and nontender with normal bowel sounds. SKIN: Skin is clear with no lesions or rashes and otherwise unremarkable. NEUROLOGIC: Patient is alert and oriented x3. Cranial nerves II through XII are grossly intact. Motor and sensory are also intact. Normal speech, volume and content. Symmetrical smile. MUSCULOSKELETAL: Normal extremities with adequate strength and full range of motion. LYMPHATICS: No significant lymphadenopathy is noted PSYCHIATRIC: Normal psychiatric evaluation. Limitations: no limitations Course Vital Signs 09/26/22 09/26/22 09/26/22 09:29 09:36 11:10 Temperature 98.3 F Pulse Rate 81 89 73 Respiratory 16 28 H 18 Rate Blood Pressure 127/83 120/75 108/69 O2 Sat by Pulse 98 97 96 Oximetry Medical Decision Making - Medical Decision Making EKG is interpreted by myself shows a sinus rhythm at 85 bpm ND interval 150 QRS is 97 Q-T intervals 343 QTC is 385. Patient's EKG shows no ST segment elevation or depression. Was pt. sent in by a medical professional or institution (ORTIZ Grajeda, FLIGHT KITCHEN MANAGER, urgent care, hospital, or longterm...) When possible be specific @ -[No] Did you speak to anyone other than the patient for history (EMS, parent, family, police, friend...)? What history was obtained from this source @ -No Did you review nursing and triage notes (agree or disagree)? Why? @ -[I reviewed and agree with nursing and triage notes] Were old charts reviewed (outside hosp., previous admission, EMS record, old EKG, old radiological studies, urgent care reports/EKG's, longterm records)? Report findings @ -Previous charts and labs were reviewed from the [facility] Differential Diagnosis (chest pain, altered mental status, abdominal pain women, abdominal pain men, vaginal bleeding, weakness, fever, dyspnea, syncope, headache, dizziness, GI bleed, back pain, seizure, CVA, palpatations, mental health, musculoskeletal)? @ -Differential Chest Pain: Stable Angina, Unstable Angina, STEMI, NSTEMI Aortic Dissection, Pneumothorax, Musculoskeletal, Esophageal Spasm GERD, Cholecystitis, Pancreatitis, Zoster, this is not meant to be an all-inclusive list. EKG interpreted by me (3pts min.). @ -[As above] X-rays interpreted by me (1pt min.). @ -X-ray showed no acute abnormality CT interpreted by me (1pt min.). @ -CT of the chest showed no PE U/S interpreted by me (1pt. min.). @ -[None done] What testing was considered but not performed or refused? (CT, X-rays, U/S, labs)? Why? @ -[None] What meds were considered but not given or refused? Why? @ -[None] Did you discuss the management of the patient with other professionals (professionals i.e. ORTIZ Grajeda, FLIGHT KITCHEN MANAGER, lab, RT, psych nurse, executive secretary social welfare, silviculture forester, teacher, consumer loan officer, rn case manager)? Give summary @ -I spoke with Dr. Phillips he agreed to admit the patient Was smoking cessation discussed for >3mins.? @ -[No] Was critical care preformed (if so, how long)? @ -[No] Were there social determinants of health that impacted care today? How? (Homelessness, low income, unemployed, alcoholism, drug addiction, transportation, low edu. Level, literacy, decrease access to med. care, [place] [facility], rehab)? @ -[No] Was there de-escalation of care discussed even if they declined (Discuss DNR or withdrawal of care, Hospice)? DNR status @ -[No] What co-morbidities impacted this encounter? (DM, HTN, Smoking, COPD, CAD, Cancer, CVA, ARF, Chemo, Hep., AIDS, mental health diagnosis, sleep apnea, morbid obesity)? @ -[None] Was patient admitted / discharged? Hospital course, mention meds given and route, prescriptions, significant lab abnormalities, going to OR and other pertinent info. @ -Patient's chest pain persisted throughout her ED course in because she had a previous ID without follow-up it was determined today we would admit the patient have cardiology see him Dr. Phillips he was in agreement Undiagnosed new problem with uncertain prognosis? @ -[No] Drug Therapy requiring intensive monitoring for toxicity (Heparin, Nitro, Insulin, Cardizem)? @ -[No] Were any procedures done? @ -[No] Diagnosis/symptom? @ -Chest pain Acute, or Chronic, or Acute on Chronic? @ -Acute Uncomplicated (without systemic symptoms) or Complicated (systemic symptoms)? @ -Complicated Side effects of treatment? @ -[No] Exacerbation, Progression, or Severe Exacerbation? @ -[No] Poses a threat to life or bodily function? How? (Chest pain, [place], ID, pneumonia, PE, COPD, DKA, ARF, appy, cholecystitis, CVA, Diverticulitis, Homicidal, Suicidal, threat to staff... and all critical care pts) @ -Yes this could lead to poor perfusion and end organ dysfunction - Lab Data Result diagrams: 09/26/22 10:31 09/26/22 10:30 Lab Results 09/26/22 09/26/22 09/26/22 Range/Units 10:30 10:30 10:31 WBC 5.6 (3.8-10.6) k/uL RBC 4.26 (3.80-5.40) m/uL Hgb 12.9 (11.4-16.0) gm/dL Hct 38.0 (34.0-46.0) % MCV 89.2 (80.0-100.0) fL MCH 30.2 (25.0-35.0) pg MCHC 33.9 (31.0-37.0) g/dL RDW 12.8 (11.5-15.5) % Plt Count 152 (150-450) k/uL MPV 9.0 Neutrophils % 71 % Lymphocytes % 21 % Monocytes % 5 % Eosinophils % 1 % Basophils % 0 % Neutrophils # 4.0 (1.3-7.7) k/uL Lymphocytes # 1.2 (1.0-4.8) k/uL Monocytes # 0.3 (0-1.0) k/uL Eosinophils # 0.1 (0-0.7) k/uL Basophils # 0.0 (0-0.2) k/uL PT (9.0-12.0) sec INR (<1.2) APTT (22.0-30.0) sec D-Dimer (<0.60) mg/L FEU Sodium 139 (137-145) mmol/L Potassium 4.1 (3.5-5.1) mmol/L Chloride 106 (98-107) mmol/L Carbon Dioxide 26 (22-30) mmol/L Anion Gap 7 mmol/L BUN 8 (7-17) mg/dL Creatinine 0.76 (0.52-1.04) mg/dL Est GFR (CKD-EPI)AfAm >90 (>60 ml/min/1.73 sqM) Est GFR (CKD-EPI)NonAf >90 (>60 ml/min/1.73 sqM) Glucose 131 H (74-99) mg/dL Calcium 9.6 (8.4-10.2) mg/dL Magnesium 1.9 (1.6-2.3) mg/dL Total Bilirubin 0.6 (0.2-1.3) mg/dL AST 19 (14-36) U/L ALT 13 (4-34) U/L Alkaline Phosphatase 39 (38-126) U/L Troponin I <0.012 (0.000-0.034) ng/mL Total Protein 6.7 (6.3-8.2) g/dL Albumin 4.2 (3.5-5.0) g/dL 09/26/22 Range/Units 10:31 WBC (3.8-10.6) k/uL RBC (3.80-5.40) m/uL Hgb (11.4-16.0) gm/dL Hct (34.0-46.0) % MCV (80.0-100.0) fL MCH (25.0-35.0) pg MCHC (31.0-37.0) g/dL RDW (11.5-15.5) % Plt Count (150-450) k/uL MPV Neutrophils % % Lymphocytes % % Monocytes % % Eosinophils % % Basophils % % Neutrophils # (1.3-7.7) k/uL Lymphocytes # (1.0-4.8) k/uL Monocytes # (0-1.0) k/uL Eosinophils # (0-0.7) k/uL Basophils # (0-0.2) k/uL PT 11.0 (9.0-12.0) sec INR 1.1 (<1.2) APTT 26.3 (22.0-30.0) sec D-Dimer 1.29 H (<0.60) mg/L FEU Sodium (137-145) mmol/L Potassium (3.5-5.1) mmol/L Chloride (98-107) mmol/L Carbon Dioxide (22-30) mmol/L Anion Gap mmol/L BUN (7-17) mg/dL Creatinine (0.52-1.04) mg/dL Est GFR (CKD-EPI)AfAm (>60 ml/min/1.73 sqM) Est GFR (CKD-EPI)NonAf (>60 ml/min/1.73 sqM) Glucose (74-99) mg/dL Calcium (8.4-10.2) mg/dL Magnesium (1.6-2.3) mg/dL Total Bilirubin (0.2-1.3) mg/dL AST (14-36) U/L ALT (4-34) U/L Alkaline Phosphatase (38-126) U/L Troponin I (0.000-0.034) ng/mL Total Protein (6.3-8.2) g/dL Albumin (3.5-5.0) g/dL Disposition Clinical Impression: Chest pain Disposition: ADMITTED IP TO THIS HOSP Referrals: Horacio Peñaloza MD [Primary Care Provider] - 1-2 days Time of Disposition: 13:25
--- NOTE | 2022-09-26 10:45 | XR ---
EXAMINATION TYPE: XR chest 2V DATE OF EXAM: 09/26/2022 COMPARISON: NONE HISTORY: Chest pain TECHNIQUE: Frontal and lateral views of the chest are obtained. FINDINGS: There is no focal air space opacity. No evidence for pneumothorax. No pleural effusion. The cardiac silhouette size is within normal limits. The osseous structures are grossly intact. IMPRESSION: 1. No acute cardiopulmonary process.
[2022-09-26 10:57] LABS: Basophils % (A) 0 %; Eosinophils # (A) 0.1 k/uL (0-0.7); Eosinophils % (A) 1 %; HGB 12.9 gm/dL (11.4-16.0); Lymphocytes # (A) 1.2 k/uL (1.0-4.8); Lymphocytes % (A) 21 %; MCH 30.2 pg (25.0-35.0); MCHC 33.9 g/dL (31.0-37.0); MCV 89.2 fL (80.0-100.0); Monocytes # (A) 0.3 k/uL (0-1.0); Monocytes % (A) 5 %; Neutrophils % (A) 71 %; Platelet Count 152 k/uL (150-450); RBC 4.26 m/uL (3.80-5.40); RDW 12.8 % (11.5-15.5); WBC 5.6 k/uL (3.8-10.6)
[2022-09-26 11:00] LABS: INR 1.1 (<1.2); Partial Thromboplastin Time 26.3 sec (22.0-30.0)
[2022-09-26 11:05] LABS: ALT 13 U/L (4-34); AST 19 U/L (14-36); African American GFR (CKD) >90 (>60 ml/min/1.73 sqM); Albumin 4.2 g/dL (3.5-5.0); Alkaline Phosphatase 39 U/L (38-126); Anion Gap 7 mmol/L; Blood Urea Nitrogen 8 mg/dL (7-17); Calcium 9.6 mg/dL (8.4-10.2); Carbon Dioxide 26 mmol/L (22-30); Chloride 106 mmol/L (98-107); Glucose 131 mg/dL (74-99); Magnesium 1.9 mg/dL (1.6-2.3); Non-African American GFR(CKD) >90 (>60 ml/min/1.73 sqM); Potassium 4.1 mmol/L (3.5-5.1); Sodium 139 mmol/L (137-145); Total Bilirubin 0.6 mg/dL (0.2-1.3); Total Protein 6.7 g/dL (6.3-8.2)
[2022-09-26] MEDS ORDERED: FAMOTIDINE 20 MG/2 ML VIAL IV STA (11:20)
[2022-09-26] MEDS ORDERED: methylPREDNISolone SOD SUCCI 125 MG/2 ML VIAL IV STA (11:20)
[2022-09-26] MEDS ORDERED: diphenhydrAMINE 50 MG/ML 1 ML VIAL IVP STA (11:20)
--- NOTE | 2022-09-26 12:24 | CT ---
EXAMINATION TYPE: CT chest angio for PE CT DLP: 179.6 mGycm, Automated exposure control for dose reduction was used. DATE OF EXAM: 09/26/2022 12:15 PM COMPARISON: Chest radiograph from same day. CLINICAL INDICATION:Female, 32 years old with history of Elevated d-dimer; Increased D-dimer, PE, N[address] st pain TECHNIQUE/CONTRAST: CTA scan of the thorax is performed without and with IV Contrast, patient injected with 100 ml mL of Isovue 370, pulmonary embolism protocol. MIP images are created and reviewed these are created on a separate workstation.. FINDINGS: Pulmonary Artery: There is no evidence for a filling defect within the pulmonary vasculature to sugge st acute pulmonary embolism. The pulmonary artery is of normal size. Lungs/Pleura: No evidence of focal consolidation, pleural effusion or pneumothorax. Airway: Large airways are patent. Heart: Heart is within normal limits for size. Vasculature: No evidence of aortic aneurysm. Mediastinum: No gross evidence of adenopathy. Musculoskeletal: No acute osseous abnormalities Soft Tissues: Unremarkable. Lower neck: No significant findings. Upper Abdomen: No significant findings. IMPRESSION: No evidence of pulmonary embolism.
[2022-09-26] MEDS ORDERED: NITROGLYCERIN SL TABS 0.4 MG TAB SUBLINGUAL PRN (13:27)
[2022-09-26] MEDS: NITROGLYCERIN OINT 1 INCH/GM PACKET TOPICAL SCH (17:21)
--- NOTE | 2022-09-26 22:06 | P.HPIM ---
History of Present Illness H&P Date: 09/26/22 Chief Complaint: Chest pain Patient is a 32-year-old female with a known history of asthma and prior history of elevated troponin level supposed to follow with cardiology for stress test, anxiety, everyday marijuana use presents to ER with complaints of chest pain. Patient states that she developed chest pain last night, mainly left retrosternal region. No associated shortness of breath. No nausea or vomiting. No lightheadedness. Symptoms resolved after about an hour. Patient did not take any medications at the time. Today 1 hour after waking up in the morning s he felt chest pain, sharp in nature and disoriented. Denies any headache. No dizziness. No diaphoresis. Patient presented to ER for evaluation. Patient states that she does have a history of tachycardia and was seen by cardiology previously. Currently not taking any medications. Patient states that she does use marijuana on daily basis. Does not want to take any medications. No recent antibiotic use. Denies any fever or chills. Patient states that she did have elevated troponin level at [facility] previously.Patient states that she had chest pain and felt like someone sitting on her chest at that time. Patient was seen by cardiology and recommended to follow-up for stress test as an outpatient. Chest x-ray showed no acute cardiopulmonary process. EKG showed sinus rhythm. Laboratory showed WBC 5.6 hemoglobin 12.9 and platelets 152, D-dimer 1.29 Sodium 139 potassium 4.1 chloride 106 bicarb is 26 BUN 18 creatinine 0.76 and blood sugar is 131. Alk phos 139 and troponin x3 negative. CT angiogram showed no evidence of PE. Review of Systems Constitutional: Patient denies any fever or chills . no Generalized weakness. Abdomen: Patient denied any nausea or vomiting or abd. pain Cardiovascular: Patient denies any chest pain or short of breath no palpitat ions. Respiratory: patient denied any cough . no sputum production. No shortness of breath Neurologic: Patient denied any numbness or tingling headache. Musculoskeletal: Patient denies any complaints of joint swelling or deformity. Skin: Negative Psychiatric: Negative Endocrine: No heat or cold intolerance. No recent weight gain. Genitourinary: No dysuria or hematuria. All other 14 point ROS negative except the above Past Medical History Past Medical History: Asthma Additional Past Medical History / Comment(s): tachycardia History of Any Multi-Drug Resistant Organisms: ESBL, MRSA Date of last positivie culture/infection: 11/02/14 ESBL-E.coli; 12/29/09 MRSA MDRO Source:: Urine-ESBL; MRSA-LT HIP Past Surgical History: Orthopedic Surgery, Tubal Ligation Additional Past Surgical History / Comment(s): d&c, shoulder and face surgery. CYST REMOVED FROM BACK OF HEAD Additional Past Anesthesia/Blood Transfusion Reaction / Comment(s): Allergy to lidocaine Past Psychological History: Anxiety Smoking Status: Current every day smoker Past Alcohol Use History: Occasional Past Drug Use History: Marijuana - Past Family History Father Family Medical History: Hypertension Mother Family Medical History: Hypertension Medications and Allergies Home Medications Medication Instructions Recorded Confirmed Type Multivit with Calcium,Iron,Min 1 tab PO DAILY 09/26/22 09/26/22 History [Women's Multivitamin] Allergies Allergy/AdvReac Type Severity Reaction Status Date / Time Penicillins Allergy Severe Anaphylaxis Verified 09/26/22 10:05 bacitracin Allergy Swelling Verified 09/26/22 10:05 [From Neosporin at contact ([id number])] bacitracin zinc Allergy Swelling Verified 09/26/22 10:05 [From Neosporin at contact ([id number])] diphenhydramine HCl Allergy Swelling Verified 09/26/22 10:05 [From Benadryl] Iodine and Iodide Containing Allergy Rash/Hives Verified 09/26/22 10:05 Produc Latex, Natural Rubber Allergy Rash/Hives Verified 09/26/22 10:05 lidocaine Allergy Anaphylaxis Verified 09/26/22 10:05 neomycin sulfate Allergy Swelling Verified 09/26/22 10:05 [From Neosporin at contact ([id number])] polymyxin B Allergy Swelling Verified 09/26/22 10:05 [From Neosporin at contact ([id number])] Physical Exam Vitals: Vital Signs Temp Pulse Pulse Resp BP BP Pulse Ox 09/26/22 20:22 98.2 F 79 16 119/74 09/26/22 18:37 98.0 F 72 16 135/75 97 09/26/22 18:20 98.1 F 84 16 112/77 98 09/26/22 17:01 98.3 F 58 L 16 119/73 98 09/26/22 16:02 64 18 101/64 99 09/26/22 15:02 67 18 98/64 97 09/26/22 14:06 66 17 107/73 97 09/26/22 13:45 98.4 F 61 18 111/70 97 09/26/22 11:10 73 18 108/69 96 09/26/22 09:36 89 28 H 120/75 97 09/26/22 09:29 98.3 F 81 16 127/83 98 Intake and Output 09/26/22 09/26/22 09/26/22 06:59 14:59 22:59 Other: Weight 74.843 kg PHYSICAL EXAMINATION: Patient is lying in the bed comfortably, no acute distress, awake alert and oriented.. HEENT: Normocephalic. Neck is supple. Pupils reactive. Nostrils clear. Oral cavity is moist. Neck reveals no JVD, carotid bruits, or thyromegaly. CHEST EXAMINATION: Trachea is central. Symmetrical expansion. Lung carl clear to auscultation and percussion. CARDIAC: Normal S1, S2 with no gallops. No murmurs ABDOMEN: Soft. Bowel sounds present. Nontender. No organomegaly. No abdominal bruits. Extremities: reveal no edema. No clubbing or cyanosis Neurologically awake, alert, oriented x3 with well-coordinated movements. No focal deficits noted Skin: No rash or skin lesions. Psychiatric: Coperative. Nonsuicidal, Musculoskeletal: No joint swelling or deformity. Normal range of motion. Results CBC & Chem 7: 09/26/22 10:31 09/26/22 10:30 Labs: Abnormal Lab Results - Last 24 Hours (Table) 09/26/22 09/26/22 Range/Units 10:30 10:31 D-Dimer 1.29 H (<0.60) mg/L FEU Glucose 131 H (74-99) mg/dL Thrombosis Risk Factor Assmnt - DVT/VTE Prophylaxis DVT/VTE Prophylaxis: Pharmacologic Prophylaxis ordered Assessment and Plan Assessment: Atypical chest pain. Rule out ACS. Evaded D-dimer level. CTA chest showed no evidence of PE. Marijuana use on daily basis. Prior history of elevated troponin level. Asthma not in exacerbation DVT prophylaxis with heparin subcu Plan: Patient will be continued telemetry monitoring. Serial EKG and troponin x3 negative. D-dimer is elevated but no evidence of PE as per CTA chest. Cardiology was consulted for evaluation. Continue symptomatic management. Follow-up closely. Time with Patient: Greater than 30
[2022-09-27] MEDS: HEPARIN SODIUM,PORCINE/PF 5,000 UNIT/0.5 ML SYRINGE SQ SCH ×2 (03:53→08:47)
[2022-09-27] MEDS: NITROGLYCERIN OINT 1 INCH/GM PACKET TOPICAL SCH ×2 (07:08→11:15)
[2022-09-27 07:28] LABS: African American GFR (CKD) >90 (>60 ml/min/1.73 sqM); Anion Gap 6 mmol/L; Blood Urea Nitrogen 10 mg/dL (7-17); Calcium 9.4 mg/dL (8.4-10.2); Carbon Dioxide 27 mmol/L (22-30); Chloride 106 mmol/L (98-107); Glucose 95 mg/dL (74-99); Non-African American GFR(CKD) >90 (>60 ml/min/1.73 sqM); Potassium 4.4 mmol/L (3.5-5.1); Sodium 139 mmol/L (137-145)
[2022-09-27 07:32] LABS: HCG,Qualitative Serum Not Detected
[2022-09-27] MEDS ORDERED: MULTIVITAMINS, THERA 1 EACH TAB PO SCH (09:00)
[2022-09-27] MEDS ORDERED: ASPIRIN 325 MG TAB PO SCH (09:00)
[2022-09-27] MEDS ORDERED: FAMOTIDINE 20 MG TAB PO SCH (09:00)
[2022-09-27 09:24] VITALS: TEMP 98.2
[2022-09-27 11:24] LABS: LDL Cholesterol,Calculated 61.6 mg/dL (0.0-131.0)
--- NOTE | 2022-09-27 12:28 | P.CRDCN ---
History of Present Illness Consult date: 09/27/22 Consult reason: chest pain History of present illness: History of present illness: This is a 32-year-old female with past medical history of tachycardia, gastroesophageal reflux disease, asthma. We have been asked to evaluate the patient for chest pain. 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 She gives history that one year ago she was having chest pain with left arm involvement and went to [facility]. She did not have any extensive testing there but was to follow-up in the office and have a stress test on there but she has not made her appointment yet. She states that 2 nights ago she developed chest pain in 1 spot in her chest just left of the sternal border and nephrology was right under the bone. She thought it was anxiety and in about one hour it stopped. Yesterday she had another episode but also had some shaking and came into the emergency center for evaluation. She states the pain has completely resolved yesterday afternoon and has not returned. EKG normal sinus rhythm Chest x-ray: No acute process CTA of the chest no pulmonary embolism Troponin negative 3 Home cardiac medications: None Review Of Systems: At the time of my evaluation: Constitutional: No fever, no chills. No weakness, fatigue or lethargy. EENT: No headache. No dizziness. Lungs: No shortness of breath, cough, no sputum production. No wheezing. Cardiovascular: No chest pain, no lower extremity edema. No palpitations. No paroxysmal nocturnal dyspnea. No orthopnea. No lightheadedness or dizziness. No syncopal episodes. Abdominal: No abdominal pain. No nausea, vomiting. No diarrhea. No constipation. No bloody or tarry stools. Genitourinary: No dysuria.. No urinary retention. Musculoskeletal: No myalgias. No muscle weakness, no frequent falls. No back pain. No neck pain. Integumentary: No wounds. No rash. No unusual bruising. Neurologic: No aphasia. No facial droop. No change in mentation. No head injury. No headache. Physical examination: Gen: This is a 32-year-old female. She is resting in bed appears to be comfortable and in no acute distress. VS: reviewed HEENT: Head is atraumatic, normocephalic. Pupils equal, round. Sclerae is anicteric. NECK: Supple. No JVD. . LUNGS: Clear to auscultation. No wheezes or rhonchi. No intercostal retractions. HEART: Regular rate and rhythm. No murmur. ABDOMEN: Soft No tenderness. EXTREMITIES: No pedal edema. No calf tenderness. NEUROLOGICAL: Patient is awake, alert and oriented x3. Assessment: Chest pain, acute coronary syndrome ruled out Plan: Obtain stress echocardiogram Obtain 2-D echocardiogram and Doppler study to assess cardiac structure and function If stress echocardiogram and echocardiogram are unremarkable, patient is cleared for discharge home. Thank you kindly for this consultation. Nurse practitioner note has been reviewed, I agree with documented findings and plan of care. Patient was seen and examined. Past Medical History Past Medical History: Asthma Additional Past Medical History / Comment(s): tachycardia History of Any Multi-Drug Resistant Organisms: ESBL, MRSA Date of last positivie culture/infection: 11/02/14 ESBL-E.coli; 12/29/09 MRSA MDRO Source:: Urine-ESBL; MRSA-LT HIP Past Surgical History: Orthopedic Surgery, Tubal Ligation Additional Past Surgical History / Comment(s): d&c, shoulder and face surgery. CYST REMOVED FROM BACK OF HEAD Additional Past Anesthesia/Blood Transfusion Reaction / Comment(s): Allergy to lidocaine Past Psychological History: Anxiety Smoking Status: Former smoker Past Alcohol Use History: Occasional Additional Past Alcohol Use History / Comment(s): QUIT SMOKING OCT 2017 Past Drug Use History: Marijuana Additional Drug Use History / Comment(s): LAST USED MARIJUANA 4 DAYS AGO- INSTRUCTED TO REFRAIN FROM USE FOR AT LEAST 24 HOURS PRIOR TO PROCEDURE - Past Family History Father Family Medical History: Hypertension Mother Family Medical History: Hypertension Medications and Allergies Home Medications Medication Instructions Recorded Confirmed Type Multivit with Calcium,Iron,Min 1 tab PO DAILY 09/26/22 09/26/22 History [Women's Multivitamin] Allergies Allergy/AdvReac Type Severity Reaction Status Date / Time Penicillins Allergy Severe Anaphylaxis Verified 09/26/22 10:05 bacitracin Allergy Swelling Verified 09/26/22 10:05 [From Neosporin at contact ([id number])] bacitracin zinc Allergy Swelling Verified 09/26/22 10:05 [From Neosporin at contact ([id number])] diphenhydramine HCl Allergy Swelling Verified 09/26/22 10:05 [From Benadryl] Iodine and Iodide Containing Allergy Rash/Hives Verified 09/26/22 10:05 Produc Latex, Natural Rubber Allergy Rash/Hives Verified 09/26/22 10:05 lidocaine Allergy Anaphylaxis Verified 09/26/22 10:05 neomycin sulfate Allergy Swelling Verified 09/26/22 10:05 [From Neosporin at contact ([id number])] polymyxin B Allergy Swelling Verified 09/26/22 10:05 [From Neosporin at contact ([id number])] Physical Exam Vitals: Vital Signs Temp Pulse Pulse Resp BP BP Pulse Ox 09/27/22 08:54 96 09/27/22 08:45 98.2 F 66 17 100/64 98 09/27/22 03:46 60 16 104/59 09/27/22 02:00 79 09/26/22 22:59 98.1 F 73 16 106/64 09/26/22 20:22 98.2 F 79 16 119/74 09/26/22 20:00 73 09/26/22 18:37 98.0 F 72 16 135/75 97 09/26/22 18:20 98.1 F 84 16 112/77 98 09/26/22 17:01 98.3 F 58 L 16 119/73 98 09/26/22 16:02 64 18 101/64 99 09/26/22 15:02 67 18 98/64 97 09/26/22 14:06 66 17 107/73 97 09/26/22 13:45 98.4 F 61 18 111/70 97 09/26/22 11:10 73 18 108/69 96 09/26/22 09:36 89 28 H 120/75 97 09/26/22 09:29 98.3 F 81 16 127/83 98 Intake and Output 09/26/22 09/27/22 09/27/22 22:59 06:59 14:59 Other: Voiding Method Toilet Toilet Toilet # Voids 1 1 Weight 74.843 kg Results 09/26/22 10:31 09/27/22 06:38 Cardiac Enzymes 09/26/22 09/26/22 09/26/22 Range/Units 10:30 10:30 13:58 AST 19 (14-36) U/L Troponin I <0.012 <0.012 (0.000-0.034) ng/mL 09/26/22 Range/Units 17:00 AST (14-36) U/L Troponin I <0.012 (0.000-0.034) ng/mL Coagulation 09/26/22 Range/Units 10:31 PT 11.0 (9.0-12.0) sec APTT 26.3 (22.0-30.0) sec CBC 09/26/22 Range/Units 10:31 WBC 5.6 (3.8-10.6) k/uL RBC 4.26 (3.80-5.40) m/uL Hgb 12.9 (11.4-16.0) gm/dL Hct 38.0 (34.0-46.0) % Plt Count 152 (150-450) k/uL Comprehensive Metabolic Panel 09/26/22 09/27/22 Range/Units 10:30 06:38 Sodium 139 139 (137-145) mmol/L Potassium 4.1 4.4 (3.5-5.1) mmol/L Chloride 106 106 (98-107) mmol/L Carbon Dioxide 26 27 (22-30) mmol/L BUN 8 10 (7-17) mg/dL Creatinine 0.76 0.66 (0.52-1.04) mg/dL Glucose 131 H 95 (74-99) mg/dL Calcium 9.6 9.4 (8.4-10.2) mg/dL AST 19 (14-36) U/L ALT 13 (4-34) U/L Alkaline Phosphatase 39 (38-126) U/L Total Protein 6.7 (6.3-8.2) g/dL Albumin 4.2 (3.5-5.0) g/dL Current Medications Generic Name Dose Route Start Last Admin Trade Name Freq PRN Reason Stop Dose Admin Aspirin 325 mg 09/27/22 09:00 09/27/22 08:48 Aspirin 325 Mg Tab PO 325 mg DAILY REYNALDO Administration Famotidine 20 mg 09/27/22 09:00 09/27/22 08:48 Famotidine 20 Mg Tab PO 20 mg BID REYNALDO Administration Heparin Sodium (Porcine) 5,000 unit 09/27/22 00:00 09/27/22 08:47 Heparin Sodium,Porcine/Pf 5,000 Unit/0.5 Ml Syringe SQ 5,000 unit Q8HR REYNALDO Administration Multivitamins 1 each 07/21/23 09:00 09/27/22 08:48 Multivitamins, Thera 1 Each Tab PO 1 each DAILY REYNALDO Administration Nitroglycerin 0.4 mg 09/26/22 13:27 Nitroglycerin Sl Tabs 0.4 Mg Tab SUBLINGUAL Q5M PRN Chest Pain Nitroglycerin 1 inch 09/26/22 18:00 09/27/22 07:08 Nitroglycerin Oint 1 Inch/Gm Packet TOPICAL Not Given Q6HR REYNALDO Intake and Output 09/26/22 09/27/22 09/27/22 22:59 06:59 14:59 Other: Voiding Method Toilet Toilet Toilet # Voids 1 1 Weight 74.843 kg 09/26/22 10:31 09/27/22 06:38
[2022-09-27 13:10] VITALS: BP 103/67; PULSE 74; RESP 18
--- NOTE | 2022-09-27 14:04 | CA ---
Stress Echo Report June Age: 32 Gender: F : 1990 Exam Date: 09/27/2022 13:02 Exam Location: [place] [facility] Ht (in): 71 Wt (lb): 165 Ordering Physician: Barbara Mcgovern Referring Physician: [id number] Mullen Retail Performance Specialist: [email or web address] Technologist Procedure CPT: Indication: CP ICD-9 Codes: Rhythm: Patient History: Chest pain Cardiac Medications: Medications in past 24 hours: Contrast: Stress Results Protocol: Mendoza Total dose(mL): Exercise Duration (min:sec): 12:[address] Depression (mm): Angina Score: Mosqueda Score: METS: 12.3 Resting HR: 62 Resting BP: 111 / 60 Peak HR: 186 Peak BP: 153 / 76 Max Predicted HR: 187 99 % Max Predicted HR Target HR: 159 Double Product: 96809 Stress Summary: BP Response: Reason for Termination: Reached target heart rate or work-load Cardiac Symptoms: No Symptoms ECG Analysis Resting ECG: Normal sinus rhythm, normal ECG. Heart rate 62 bpm Stress ECG: No significant ST-T wave changes diagnostic for ischemia by ST segment analysis Arrhythmia: Occasional premature ventricular contractions. Few premature atrial contractions in trigeminy fashions. Echo Analysis Resting Echo: Normal global and regional wall motion at rest Peak Echo Analysis: Appropriate augmentation of all echocardiographic segments with stress Normal global and regional wall motion with stress MEASUREMENTS (Male/Female) Normal Values CONCLUSIONS Good exercise tolerance, achieving 12.3 METS and 99 % of max predicted heart rate. Normal hemodynamic and heart rate response to exercise Normal wall motion on resting echo Nonischemic echocardiographic response to exercise Nonischemic ECG response to exercise Overall normal stress echo Dr Orlando Bird (Electronically Signed) Final Date: 27 September 2022 14:03
--- NOTE | 2022-09-27 15:10 | CA ---
Transthoracic Echo Report Name: Jody Loyd Age: 32 Gender: F : 1990 Exam Date: 09/27/2022 13:23 Exam Location: [place] [facility] Ht (in): 71 Wt (lb): 165 Ordering Physician: Barbara Mcgovern Attending/Referring Phys: [id number], Shaniqua Radiochemical Technician Silvia Monte, MAGUE Procedure CPT: Indications: LVF Cardiac Hx: Technical Quality: Good Contrast 1: Total Dose (mL): Contrast 2: Total Dose (mL): MEASUREMENTS (Male / Female) Normal Values 2D ECHO LV Diastolic Diameter PLAX 4.5 cm 4.2 - 5.9 / 3.9 - 5.3 cm LV Systolic Diameter PLAX 2.6 cm IVS Diastolic Thickness 0.9 cm 0.6 - 1.0 / 0.6 - 0.9 cm LVPW Diastolic Thickness 0.9 cm 0.6 - 1.0 / 0.6 - 0.9 cm LV Relative Wall Thickness 0.4 RV Internal Dim ED PLAX 2.8 cm LA Systolic Diameter LX 2.8 cm 3.0 - 4.0 / 2.7 - 3.8 cm LA Volume 33.2 cm??? 18 - 58 / 22 - 52 cm??? M-MODE Aortic Root Diameter MM 3.2 cm MV E Point Septal Separation 0.4 cm AV Cusp Separation MM 2.2 cm DOPPLER AV Peak Velocity 109.4 cm/s AV Peak Gradient 4.8 mmHg MV Area PHT 4.7 cm??? Mitral E Point Velocity 94.4 cm/s Mitral A Point Velocity 71.3 cm/s Mitral E to A Ratio 1.3 MV Deceleration Time 161.7 ms MV E' Velocity 14.2 cm/s Mitral E to MV E' Ratio 6.7 TR Peak Velocity 209.2 cm/s TR Peak Gradient 17.5 mmHg Right Ventricular Systolic Press 21.7 mmHg FINDINGS Left Ventricle Left ventricular ejection fraction is estimated at 55-60 %. Left ventricular cavity size normal. Left ventricular wall thickness normal. Normal left ventricular wall motion. Right Ventricle Normal right ventricular size and function. Right ventricular systolic pressure within normal limits. Right Atrium Normal right atrial size. Left Atrium Normal left atrial size. Mitral Valve Structurally normal mitral valve. No mitral stenosis, regurgitation or prolapse. Aortic Valve Trileaflet aortic valve. No aortic valve stenosis or regurgitation. Tricuspid Valve Structurally normal tricuspid valve. Trace to mild tricuspid regurgitation. Pulmonic Valve Structurally normal pulmonic valve. No pulmonic regurgitation. Pericardium Normal pericardium. No pericardial effusion. Aorta Normal size aortic root and proximal ascending aorta. CONCLUSIONS Normal LV size, wall thickness and systolic function. Estimated LVEF 60%. No obvious regional wall motion abnormality. No significant diastolic dysfunction. No significant valvular dysfunction. Overall normal chamber sizes. No pericardial effusion. No prior echo to compare with. Previewed by: Dr Orlando Bird (Electronically Signed) Final Date: 27 September 2022 15:09
== END 2022-09-27 15:31 | disposition home or self-care (01) ==
LOC: EC 09:24 → 3SCARD 13:27 → INTOOBSV 13:27 → 3SCARD 18:14
PROVIDERS: ADMIT Internal Medicine; ATTEND Internal Medicine
DX: R07.89 Other chest pain (principal); R79.89 Other specified abnormal findings of blood chemistry; I25.2 Old myocardial infarction; J45.909 Unspecified asthma, uncomplicated; F41.9 Anxiety disorder, unspecified; R00.0 Tachycardia, unspecified; K21.9 Gastro-esophageal reflux disease without esophagitis; Z86.14 Personal history of Methicillin resistant Staphylococcus aureus infection; F17.200 Nicotine dependence, unspecified, uncomplicated; Z82.49 Family history of ischemic heart disease and other diseases of the circulatory system; Z88.0 Allergy status to penicillin; Z88.8 Allergy status to other drugs, medicaments and biological substances; Z88.1 Allergy status to other antibiotic agents; Z91.040 Latex allergy status
CPT/HCPCS: 96372; 96374; 96375; 99285; 36415; 94760; 93005; 93306; 93351; 85379; 80061; 80053; 80048; 84443; 83735; 84484; 85025; 85610; 85730; 84703; 71046; 71275; G0378; J2930; Q9967; J1644

== ENCOUNTER → 2023-02-05 | Outpatient (CLI) | payer OTHER ==
--- NOTE | 2023-02-05 16:27 | XR ---
EXAMINATION TYPE: XR chest 1V DATE OF EXAM: 02/05/2023 COMPARISON: NONE HISTORY: Lower thoracic pain. TECHNIQUE: Single frontal view of the chest is obtained. FINDINGS: There is no focal air space opacity, pleural effusion, or pneumothorax seen. The cardiac silhouette size is within normal limits. The osseous structures are intact. IMPRESSION: No acute process.
--- NOTE | 2023-02-05 16:29 | XR ---
Two-view thoracic spine. DATE: 02/05/2023. COMPARISON: None available. CLINICAL HISTORY: Lower thoracic pain. FINDINGS: The vertebral bodies are well aligned without evidence of fracture, subluxation or dislocation. The vertebral body heights and disc spaces are maintained. IMPRESSION: No fracture, subluxation or dislocation.
== END | disposition home or self-care (01) ==
LOC: RADXRMAIN 15:47
PROVIDERS: ATTEND Emergency Medicine
DX: S23.3XXA Sprain of ligaments of thoracic spine, initial encounter (principal); S29.002A Unspecified injury of muscle and tendon of back wall of thorax, initial encounter; M54.6 Pain in thoracic spine
CPT/HCPCS: 71045; 72070

== ENCOUNTER → 2024-06-04 | Outpatient (CLI) | payer OTHER ==
[2024-06-04 15:04] LABS: Basophils # (A) 0.04 X 10*3/uL (0.00-0.10); Basophils % (A) 0.6 %; Eosinophils % (A) 1.4 %; HCT 43.3 % (37.2-46.3); HGB 13.6 g/dL (12.0-15.0); Lymphocytes % (A) 21.4 %; MCH 29.8 pg (27.0-32.0); MCHC 31.4 g/dL (32.0-37.0); MCV 94.7 FL (80.0-97.0); Mean Platelet Volume 11.4 FL (9.5-12.2); Monocytes # (A) 0.49 X 10*3/uL (0.20-1.00); NRBC Per 100 WBC 0 X 10*3/uL (0.00-0.01); Neutrophils # (A) 4.85 X 10*3/uL (1.80-7.70); Neutrophils % (A) 69.3 %; Platelet Count 189 X 10*3/uL (140-440); RBC 4.57 X 10*6/uL (4.10-5.20); RDW 12.5 % (11.5-14.5)
[2024-06-04 15:50] LABS: ALT 17 U/L (8-44); AST 22 U/L (13-35); Albumin 4.5 g/dL (3.8-4.9); Albumin/Globulin Ratio 1.88 Ratio (1.60-3.17); Alkaline Phosphatase 47 U/L (41-126); BUN/Creat Ratio 7.75 Ratio (12.00-20.00); Blood Urea Nitrogen 6.2 mg/dL (9.0-27.0); Calcium 9.8 mg/dL (8.7-10.3); Carbon Dioxide 26.7 mmol/L (21.6-31.8); Chloride 105 mmol/L (96-109); Chol/HDL Ratio 3.08 Ratio; Globulin 2.4 g/dL (1.6-3.3); Glucose 100 mg/dL (70-110); LDL Cholesterol,Calculated 80.7 mg/dL (0.0-131.0); Potassium 4.5 mmol/L (3.5-5.5); Sodium 142 mmol/L (135-145); Total Bilirubin 0.4 mg/dL (0.3-1.2); Total Protein 6.9 g/dL (6.2-8.2)
== END | disposition home or self-care (01) ==
LOC: LABWHC1 09:18
PROVIDERS: ATTEND Family Medicine
DX: Z00.01 Encounter for general adult medical examination with abnormal findings (principal)
CPT/HCPCS: 36415; 80053; 80061; 82306; 84443; 85025